=== PATIENT | female | born 2000 | race Two or more races ===

== ENCOUNTER 2024-09-11 15:18 | Inpatient (IN) | payer MEDICAID, OTHER ==
[~2024-09-11] VITALS: Ht 162.6 cm; Wt 111.7 kg
--- NOTE | 2024-09-11 16:03 | ED.PDOC ---
GI ASSESSMENT HPI Comments A 24-YEAR-OLD FEMALE PRESENTS WITH A CHIEF COMPLAINT OF ABDOMINAL PAIN X 3 WEEKS WITH ASSOCIATED NAUSEA AND VOMITING. PATIENT MENTIONS THAT HER ABDOMEN PAIN IS LOCALIZED TO HER RUQ, RADIATING TO HER BACK, DESCRIBES SHARP, AND RATES HER PAIN A 8/10. PATIENT REPORTS THAT SHE WAS SEEN AT A HOSPITAL IN [place] AND WAS DIAGNOSED WITH GALLSTONES, BUT REPORTS THAT THE MEDICATIONS THEY GAVE HER WERE NOT HELPING WITH HER PAIN. PT DENIES FEVER, SOB, CHEST PAIN, HEADACHE, DIZZINESS AND OTHER COMPLAINTS. NO OTHER SYMPTOMS REPORTED AT THIS TIME OF CARE. Time Seen by MD: 15:44 Reviewed Notes: Nurses Notes, Medications, Allergies Allergies: Coded Allergies: NO KNOWN ALLERGIES (Unverified , 09/11/24) Information Source: Patient Mode of Arrival: Ambulatory Timing: Weeks Duration: Since onset, Days Prehospital treatment: None Quality: Cramping, Sharp, Colicky Vomitus: Food Particles Stool: Normal Severity: Moderate Recent: None Recent Hx of: Other (GALLSTONES ) Pain Location: Epigastric, RUQ Modifying Factors: Food Associated sign and symptoms: Nausea, Vomiting, Abdominal Pain Past Medical History PAST MEDICAL HISTORY: Gallstones Surgical History: Denies all surgeries ZINC PLATE GRAINER History: Denies all ZINC PLATE GRAINER Hx Family History Family History: Reviewed,noncontributory to illness Social History Smoker: Non-Smoker Alcohol: Denies ETOH Use Drugs: Denies Drug Use Lives In: Home Constitutional: denies: chills, diaphoresis, fatigue, fever, malaise, sweats, weakness, others EENTM: denies: blurred vision, double vision, ear bleeding, ear discharge, ear drainage, ear pain, ear ringing, eye pain, eye redness, hearing loss, mouth p ain, mouth swelling, nasal discharge, nose bleeding, nose congestion, nose pain, photophobia, tearing, throat pain, throat swelling, voice changes, others Respiratory: denies: cough, hemoptysis, orthopnea, SOB at rest, shortness of br eath, SOB with excertion, stridor, wheezing, others Cardiovascular: denies: chest pain, dizzy spells, diaphoresis, Dyspnea on exertion, edema, irregular heart beat, left arm pain, lightheadedness, palpitations, PND, syncope, others Gastrointestinal: reports: abdominal pain, nausea, vomiting; denies: abdomen distended, blood streaked bowels, constipated, diarrhea, dysphagia, difficulty swallowing, hematemesis, melena, poor appetite, poor fluid intake, rectal bleeding, rectal pain, others Genitourinary: denies: abnormal vagina bleeding, burning, dyspareunia, dysuria, flank pain, frequency, hematuria, incontinence, pain, , vagina discharge, urgency, others Neurological: denies: dizziness, fainting, headache, left sided numbness, left sided weakness, numbness, paresthesia, pre-existing deficit, right sided numbness, right sided weakness, seizure, speech problems, tingling, tremors, weakness, others Musculoskeletal: denies: back pain, gout, joint pain, joint swelling, muscle pain, muscle stiffness, neck pain, others Integumetry: denies: bruises, change in color, change in hair/nails, dryness, laceration, lesions, lumps, rash, wounds, others Allergic/Immunocompromised: denies: Difficulty Healing, Frequent Infections, Hives, Itching, others Hematologic/Lymphatic: denies: anemia, blood clots, easy bleeding, easy bruising, swollen glands, others Endocrine: denies: excessive hunger, excessive sweating, excessive thirst, excessive urination, flushing, intolerance to cold, intolerance to heat, unexplained weight gain, unexplained weight loss, others Psychiatric: denies: anxiety, bipolar disorder, depression, hopeless, panic disorder, schizophrenia, sleepless, suicidal, others All Other Systems: Reviewed and Negative Physical Exam General Appearance: No Apparent Distress, Obese HEENT: Normal ENT Inspection, PERRL/EOMI, Pharynx Normal, TMs Normal Neck: Full Range of Motion, Non-Tender, Normal, Normal Inspection Respiratory: Chest Non-Tender, Lungs Clear, No Accessory Muscle Use, No Respiratory Distress, Normal Breath Sounds Cardiovascular: No Edema, No JVD, No Murmur, No Gallop, Normal Peripheral Pulse s, Regular Rate/Rhythm Breast Exam: Deferred Gastrointestinal: Epigastric, No Organomegaly, No Pulsatile Mass, Normal Bowel Sounds, RLQ, Soft, Tenderness (RIGHT UPPER ABD TO EPIGASTRIC WITH MILD GUARDING, NO REBOUND TENDERNESS. ) Genitalia: Deferred Pelvic: Deferred Rectal: Deferred Extremities: No calf tenderness, Normal capillary refill, Normal inspection, Normal range of motion, Non-tender, No pedal edema Musculoskeletal : Apperance: Normal Neurologic: Alert, public policy manager II-XII nml as Tested, No Motor Deficits, Normal Affect, Normal Mood, No Sensory Deficits Cerebellar Function: Normal Reflexes: Normal Skin: Dry, Normal Color, Warm Peripheral Pulses: 2+ carotid (R), 2+ carotid (L) Lymphatic: No Adenopathy Was a procedure done? Was a procedure done?: No GI differential Dx Differential Diagnosis: Cholangitis, Cholecystitis, Gastritis/PUD, Gastroenteritis, Hepatitis, Inflammatory BD X-Ray, Labs, Meds, VS Vital Signs Date Time Temp Pulse Resp B/P (MAP) Pulse Ox O2 Delivery O2 Flow Rate FiO2 09/11/24 22:49 98 Room Air* 0 21 09/11/24 21:11 98.9 96 18 112/80 (91) 98 98.9 09/11/24 15:50 97.8 90 18 113/70 (84) 98 97.8 Lab Test 09/11/24 16:05 09/11/24 13:30 Range/Units White Blood Count 20.0 H 4.4-10.8 10^3/uL Red Blood Count 4.60 4.0-5.20 10^6/uL Hemoglobin 13.7 12.2-16.2 g/dL Hematocrit 39.6 36.0-46.0 % Mean Corpuscular Volume 86.0 80.0-100.0 fL Mean Corpuscular Hemoglobin 29.8 28.0-32.0 pg Mean Corpuscular Hemoglobin Concent 34.6 32.0-36.0 g/dL Red Cell Distribution Width 13.5 11.8-14.3 % Platelet Count 455 H 140-450 10^3/uL Mean Platelet Volume 8.2 6.9-10.8 fL Neutrophils (%) (Auto) 85.2 H 37.0-80.0 % Lymphocytes (%) (Auto) 8.7 L 10.0-50.0 % Monocytes (%) (Auto) 5.7 0.0-12.0 % Eosinophils (%) (Auto) 0.2 0.0-7.0 % Basophils (%) (Auto) 0.2 0.0-2.0 % Neutrophils # (Auto) 17.0 H 1.6-8.6 10 ^3/uL Lymphocytes # (Auto) 1.7 0.4-5.4 10 ^3/uL Monocytes # (Auto) 1.1 0-1.3 10 ^3/uL Eosinophils # (Auto) 0 0-0.8 10 ^3/uL Basophils # (Auto) 0 0-0.2 10 ^3/uL Nucleated Red Blood Cells 0.0 % Sodium Level 138 136-145 mmol/L Potassium Level 4.0 3.5-5.1 mmol/L Chloride Level 105 98-107 mmol/L Carbon Dioxide Level 23 20-31 mmol/L Anion Gap 10 5-15 Blood Urea Nitrogen 11 9-23 mg/dL Creatinine 0.81 0.550-1.02 mg/dL Glomerular Filtration Rate Calc 105 >90 mL/min BUN/Creatinine Ratio 13.6 10.0-20.0 Serum Glucose 116 H 74-106 mg/dL Calcium Level 9.9 8.7-10.4 mg/dL Total Bilirubin 1.1 H 0.2-1.0 mg/dL Aspartate Amino Transferase (AST) 92 H 13-40 U/L Alanine Aminotransferase (ALT) 59 H 7-40 U/L Alkaline Phosphatase 80 46-116 U/L Total Protein 7.7 5.7-8.2 g/dL Albumin 4.5 3.2-4.8 g/dL Lipase 27 12-53 U/L Urine Color Yellow Yellow Urine Clarity Turbid H Clear Urine pH 6.0 5.0-9.0 Urine Specific Wilder 1.033 1.001-1.035 Urine Protein Trace H Negative Urine Ketones 1+ H Negative Urine Blood Negative Negative /uL Urine Nitrite Negative Negative Urine Bilirubin 1+ H Negative Urine Urobilinogen 4 H Negative mg/dL Urine Leukocyte Esterase Negative Negative /uL Urine RBC 2 0 - 4 /hpf Urine Microscopic WBC 1 0-5 /HPF Urine Squamous Epithelial Cells Mod <5 /hpf Urine Bacteria None seen None Seen /hpf Urine Mucus Few None Seen Urine Glucose Normal Normal mg/dL Urine Test Negative Negative Current Medications Medications (Trade) Dose Ordered Sig/Nazia Route Start Time Stop Time Status Last Admin Sodium Chloride 1,000 ml @ 1,000 mls/hr Q1H ONCE IV 09/11/24 16:45 09/11/24 17:44 DC 09/11/24 17:57 Ondansetron HCl (Zofran) 4 mg ONCE ONCE IV 09/11/24 16:45 09/11/24 16:46 DC 09/11/24 17:54 Ketorolac Tromethamine (Toradol Injection) 30 mg ONCE ONCE IV 09/11/24 16:45 09/11/24 16:46 DC 09/11/24 17:55 Ceftriaxone Sodium 50 ml @ 100 mls/hr ONCE ONCE IV 09/11/24 17:30 09/11/24 17:59 DC 09/11/24 17:54 Pantoprazole Sodium (Protonix) 40 mg ONCE ONCE IV 09/11/24 22:00 09/11/24 22:09 DC 09/11/24 22:46 Metronidazole 100 ml @ 100 mls/hr Q8HR IV 09/11/24 22:00 09/12/24 05:29 Sodium Chloride 1,000 ml @ 60 mls/hr [id number] IV 09/11/24 22:00 09/12/24 05:38 X-Ray, Labs, Meds, VS Comment EXTERNAL MEDICAL RECORDS: NONE INDEPENDENT HISTORIANS: NONE SOCIAL DETERMINANTS OF HEALTH: NONE LABS ORDERED: CBC, CMP REVIEWED AND INTERPRETED RESULTS: AST/ALT IS MILD ELEVATED. WBC IS ELEVATED. IMAGING ORDERED: GALLBLADDER US TREATMENTS ORDERED: 0.9 NS 1L IV, TORADOL IM, ROCEPHIN IM, ZOFRAN IVP PATIENT'S CASE AND RESULTS HAVE BEEN DISCUSSED WITH DR. ZALDIVAR AND THEY AGREE WITH MY PLAN OF CARE. UPON MY PHYSICAL EXAMINATION, THE PATIENT HAD GUARDING NOTED UPON PALPATION TO HER RUQ OF HER ABDOMEN, BUT NO REBOUND TENDERNESS. DUE TO THE PATIENT'S ABDOMINAL ULTRASOUND REVEALING CHOLELITHIASIS WITH A MILD COMMON BILE DUCT DILATION/POSSIBLE CHOLEDOCHOLITHIASIS AND HER LABS SHOWING MILDLY ELEVATED LIVER ENZYMES, I HAVE DETERMINED THE PATIENT NEEDS TO BE ADMITTED FOR AN MRCP TO RULE OUT CHOLEDOCHOLITHIASIS. THE ON-CALL HOSPITALIST WILL BE CONTACTED FOR ADMISSION OF THIS PATIENT. 1730 I HAVE CALLED THE ON-CALL HOSPITALIST HARDY TOMAS NP, AND HE HAS SAID HE WILL REPEAT THE PATIENT'S LIVER PANEL AND ADMIT THE PATIENT FOR FURTHER EVALUATION. Time of 1ST Reevaluation: 17:00 Reevaluation 1ST: Unchanged Patient Education/Counseling: Diagnosis, Treatment Family Education/Counseling: Diagnosis, Treatment SEPSIS Sepsis Screen Physician Orders Gallbladder (09/11/24 15:48) Heplock Iv (09/11/24 ) * [employer] Program Director (09/11/24 21:58) Ceftriaxone 1gm/50ml D5w (Rocephin) (09/12/24 18:00) Pantoprazole (Protonix) (09/12/24 10:00) Blood Culture (09/11/24 21:58) Metronidazole 500mg/100ml (Flagyl 500mg/ (09/11/24 22:00) Allergies (09/11/24 21:58) Code Status (09/11/24 21:58) Sodium Chloride 0.9% (09/11/24 22:00) Oxygen Per Hour (09/11/24 21:58) Hydrocodone-Acet 5/325mg Tab ([place] 5/32 (09/11/24 22:00) Ondansetron Hcl (Zofran) (09/11/24 22:00) Docusate Sodium Capsule (Colace Capsule) (09/11/24 22:00) Condition: Serious (09/11/24 21:58) Acetaminophen Tablet (Tylenol Tablet) (09/11/24 22:00) Clear Liq Diet (09/12/24 Breakfast) Bedrest With Bathroom Privileg (09/11/24 21:58) Morphine Sulfate Injection (09/11/24 22:00) Sequential Compression Device (09/11/24 ) Vital Signs Date Time Temp Pulse Resp B/P (MAP) Pulse Ox O2 Delivery O2 Flow Rate FiO2 09/11/24 22:49 98 Room Air* 0 21 09/11/24 21:11 98.9 96 18 112/80 (91) 98 98.9 09/11/24 15:50 97.8 90 18 113/70 (84) 98 97.8 Laboratory Tests Test 09/11/24 16:05 White Blood Count 20.0 10^3/uL (4.4-10.8) H Medications Medications Dose Ordered Sig/Nazia Route Start Time Stop Time Status Last Admin Dose Admin Metronidazole 100 ml @ 100 mls/hr Q8HR IV 09/11/24 22:00 09/12/24 05:29 Pantoprazole Sodium 40 mg ONCE ONCE IV 09/11/24 22:00 09/11/24 22:09 DC 09/11/24 22:46 Sodium Chloride 1,000 ml @ 60 mls/hr [id number] IV 09/11/24 22:00 09/12/24 05:38 Departure 1 Departure Time of Disposition: 17:00 Impression: Primary Impression: Cholelithiasis and cholecystitis without obstruction Qualified Codes: K80.62 - Calculus of gallbladder and bile duct with acute cholecystitis without obstruction Additional Impression: Common bile duct dilation Disposition: ADMITTED INPATIENT Admit to: Tele Condition: Serious Critical Care Note Critical Care Time?: No Stability Stability form required: Yes Unstable for transfer: Requires medication, ED Physician Assesment, Possible rapid decline Heart Score Heart Score: Heart Score Response (Comments) Value History N/A 0 EKG N/A 0 Age N/A 0 Risk Factors N/A 0 Troponin N/A 0 Total 0 I personally scribed for ARAVIND GRAJEDA ([email or web address]) on 09/11/24 at 16:03. Electronically submitted by Christiano Paredes ([email or web address]). I personally scribed for ARAVIND GRAJEDA ([email or web address]) on 09/11/24 at 17:42. Electronically submitted by Christiano Paredes ([email or web address]). I personally scribed for ARAVIND GRAJEDA ([email or web address]) on 09/11/24 at 17:44. Electronically submitted by Christiano Paredes ([email or web address]). ARAVIND GRAJEDA Sep 11, 2024 16:03
[2024-09-11 16:25] LABS: Hematocrit 39.6 % (36.0-46.0); Hemoglobin 13.7 g/dL (12.2-16.2); Mean Corpuscular Hemoglobin 29.8 pg (28.0-32.0); Mean Corpuscular Volume 86.0 fL (80.0-100.0); Nucleated Red Blood Cells % 0.0 %
[2024-09-11 16:42] LABS: Albumin 4.5 g/dL (3.2-4.8); Alkaline Phosphatase 80 U/L (46-116); Anion Gap 10 (5-15); BUN/Creatinine Ratio 13.6 (10.0-20.0); Bilirubin, Total 1.1 mg/dL (0.2-1.0); Blood Urea Nitrogen 11 mg/dL (9-23); Calcium 9.9 mg/dL (8.7-10.4); Carbon Dioxide 23 mmol/L (20-31); Chloride 105 mmol/L (98-107); Lipase 27 U/L (12-53); Potassium 4.0 mmol/L (3.5-5.1); Sodium 138 mmol/L (136-145); Total Protein 7.7 g/dL (5.7-8.2)
[2024-09-11 16:43] LABS: Alanine Aminotransferase 59 U/L (7-40); Glucose 116 mg/dL (74-106)
[2024-09-11 17:08] LABS: Urine Protein, UAD TRACE (Negative)
--- NOTE | 2024-09-11 17:16 | DVH ---
Technique: Real-time ultrasound imaging of the abdomen was performed with grayscale and color Doppler . Indication: EPIGASTRIC PAIN, HX OF GALLSTONE Comparison: None Findings: Liver measures 15.7 cm. It is increased in echogenicity and echotexture without focal mass. Portal v ein is normal in caliber and demonstrates normal hepatopetal flow. Gallbladder demonstrates cholelithiasis. There is no pericholecystic fluid. The wall thickness is nor mal. The common bile duct measures 8 mm. No intrahepatic biliary ductal dilatation. The right kidney measures 9.7 cm. There is no hydronephrosis or sonographic evidence of nephrolithias is. The visualized portion of the pancreas is unremarkable. The visualized portion of the IVC is unremarkable. Impression: Cholelithiasis Dilated common bile duct measuring 8 mm with possible choledocholithiasis. Recommend MRCP and GI con sultation to further evaluate. Echogenic liver which can be seen with hepatic steatosis, cirrhosis.
[2024-09-11] MEDS: cefTRIAXone 1GM/50ML D5W 50 ML IV ONE (17:54)
[2024-09-11] MEDS: ONDANSETRON HCL 4 MG/2 ML VIAL IV ONE (17:54)
[2024-09-11] MEDS: KETOROLAC TROMETH 30 MG/ML 1ML VIAL IV ONE (17:55)
[2024-09-11] MEDS: SODIUM CHLORIDE 0.9% 1,000 ML IV ONE (17:57)
[2024-09-11] MEDS ORDERED: DOCUSATE SOD 100 MG CAP PO PRN (22:00)
[2024-09-11] MEDS: SODIUM CHLORIDE 0.9% 1,000 ML IV SCH (22:00)
[2024-09-11] MEDS: PANTOPRAZOLE 40 MG/10 ML VIAL INJ IV ONE (22:46)
[2024-09-11 22:49] VITALS: O2SAT 98
--- NOTE | 2024-09-11 23:48 | DVHHP2 ---
History of Present Illness Reason for Visit: Acute abdominal pain History of Present Illness The patient is a 24-year-old female with past medical history of gallstones who presented to [facility] ED with complaint of abdominal pain for the past 3 weeks. Patient reports she has been experiencing abdominal pain rating 8/10 numeric scale, described as sharp, associated with nausea, vomiting, getting worse that prompted this visit. Patient was seen and evaluated in the ED, laboratory data shows WBC 20.0, platelets 455, sodium 138, potassium 4.0, BUN 11, creatinine 0.81, glucose 106, calcium 9.9, lipase 27, AST 92, ALT 59, blood pressure 112/80, heart rate 96, temperature 98.6 F, O2 saturation 98% on room air. Gallbladder ultrasound revealing cholelithiasis, dilated common bile duct measuring 8 mm with possible choledocholithiasis. Patient was given Toradol 30 mg IV x1, please see medication orders section in the computer. On my assessment, patient denied chest pain, no headache, no dizziness, no diaphoresis, no shortness of breaths, no nausea, no vomiting at this moment, no fever, no chills. Patient was admitted for further evaluation and medical management. Past Medical History Gallstones Past Surgical History Denies all surgeries Family History Reviewed, noncontributory to the management of this case. Past Social History The patient lives at home, denies smoking, alcohol or illicit drugs abuse. Review of Systems Constitutional: No: Fever, Chills, Sweats, Weakness, Malaise, Other Eyes: No: Pain, Vision change, Conjunctivae inflammation, Eyelid inflammation, Other, Redness ENT: No: Ear pain, Ear discharge, Nose pain, Nose discharge, Nose congestion, Mouth pain, Mouth swelling, Throat pain, Throat swelling, Other Respiratory: No: Cough, Dry, Shortness of breath, SOB with excertion, Wheezing, Hemoptysis, Pleuritic Pain, Sputum, Wheezing, Other Cardiovascular: No: Chest Pain, Palpitations, Orthopnea, Paroxysmal Noc. Dyspnea, Edema, Lt Headedness, Other Gastrointestinal: Nausea, Vomiting, Abdominal Pain; No: Diarrhea, Constipation, Melena, Hematochezia, Other Genitourinary: No Dysuria, No Frequency, No Incontinence, No Hematuria, No Retention, No Other Musculoskeletal: No: other, neck pain, shoulder pain, arm pain, back pain, hand pain, leg pain, foot pain Skin: No: Rash, Lesions, Jaundice, Bruising, Other Neurological: No: Weakness, Numbness, Incoordination, Change in speech, Confusion, Seizures, Other Allergies: Coded Allergies: NO KNOWN ALLERGIES (Unverified , 09/11/24) Medications Current Medications Medications Dose Ordered Sig/Nazia Route Start Time Stop Time Status Last Admin Dose Admin Ceftriaxone Sodium 50 ml @ 100 mls/hr Q24H IV 09/12/24 18:00 Pantoprazole Sodium 40 mg DAILY IV 09/12/24 10:00 Metronidazole 100 ml @ 100 mls/hr Q8HR IV 09/11/24 22:00 09/11/24 22:45 100 MLS/HR Sodium Chloride 1,000 ml @ 60 mls/hr [id number] IV 09/11/24 22:00 Acetaminophen/ Hydrocodone Bitart 1 tab Q4HP PRN PO 09/11/24 22:00 Ondansetron HCl 4 mg Q4HP PRN IV 09/11/24 22:00 Docusate Sodium 100 mg BIDPRN PRN PO 09/11/24 22:00 Acetaminophen 650 mg Q6HP PRN PO 09/11/24 22:00 Morphine Sulfate 2 mg Q4HPRN PRN IV 09/11/24 22:00 Exam Vital Signs Vital Signs Date Time Temp Pulse Resp B/P (MAP) Pulse Ox O2 Delivery O2 Flow Rate FiO2 09/11/24 22:49 98 Room Air* 0 21 09/11/24 21:11 98.9 96 18 112/80 (91) 98.9 General Appearance: Alert, Oriented X3, Cooperative, No acute distress HEENT: Atraumatic, PERRLA, EOMI, Mucous membr. moist/pink Respiratory: Normal air movement Cardiovascular: Regular rate, Normal S1, Normal S2, No murmurs Abdominal: Normal bowel sounds, Soft, No tenderness, No hepatospenomegaly, No masses Extremities: No clubbing, No cyanosis, No edema, Normal pulses, No tenderness/swelling Skin: No rashes, No breakdown, No significant lesion Neuro: Normal gait, Normal speech, Strength at 5/5 X4 ext, Normal tone, Sensation intact, Cranial nerves 3-12 NL, Reflexes 2+ Psych/Mental Status: Mental status NL, Mood NL Labs/Xrays Labs Test 09/11/24 16:05 09/11/24 13:30 Range/Units White Blood Count 20.0 H 4.4-10.8 10^3/uL Red Blood Count 4.60 4.0-5.20 10^6/uL Hemoglobin 13.7 12.2-16.2 g/dL Hematocrit 39.6 36.0-46.0 % Mean Corpuscular Volume 86.0 80.0-100.0 fL Mean Corpuscular Hemoglobin 29.8 28.0-32.0 pg Mean Corpuscular Hemoglobin Concent 34.6 32.0-36.0 g/dL Red Cell Distribution Width 13.5 11.8-14.3 % Platelet Count 455 H 140-450 10^3/uL Mean Platelet Volume 8.2 6.9-10.8 fL Neutrophils (%) (Auto) 85.2 H 37.0-80.0 % Lymphocytes (%) (Auto) 8.7 L 10.0-50.0 % Monocytes (%) (Auto) 5.7 0.0-12.0 % Eosinophils (%) (Auto) 0.2 0.0-7.0 % Basophils (%) (Auto) 0.2 0.0-2.0 % Neutrophils # (Auto) 17.0 H 1.6-8.6 10 ^3/uL Lymphocytes # (Auto) 1.7 0.4-5.4 10 ^3/uL Monocytes # (Auto) 1.1 0-1.3 10 ^3/uL Eosinophils # (Auto) 0 0-0.8 10 ^3/uL Basophils # (Auto) 0 0-0.2 10 ^3/uL Nucleated Red Blood Cells 0.0 % Sodium Level 138 136-145 mmol/L Potassium Level 4.0 3.5-5.1 mmol/L Chloride Level 105 98-107 mmol/L Carbon Dioxide Level 23 20-31 mmol/L Anion Gap 10 5-15 Blood Urea Nitrogen 11 9-23 mg/dL Creatinine 0.81 0.550-1.02 mg/dL Glomerular Filtration Rate Calc 105 >90 mL/min BUN/Creatinine Ratio 13.6 10.0-20.0 Serum Glucose 116 H 74-106 mg/dL Calcium Level 9.9 8.7-10.4 mg/dL Total Bilirubin 1.1 H 0.2-1.0 mg/dL Aspartate Amino Transferase (AST) 92 H 13-40 U/L Alanine Aminotransferase (ALT) 59 H 7-40 U/L Alkaline Phosphatase 80 46-116 U/L Total Protein 7.7 5.7-8.2 g/dL Albumin 4.5 3.2-4.8 g/dL Lipase 27 12-53 U/L Urine Color Yellow Yellow Urine Clarity Turbid H Clear Urine pH 6.0 5.0-9.0 Urine Specific [place] 1.033 1.001-1.035 Urine Protein Trace H Negative Urine Ketones 1+ H Negative Urine Blood Negative Negative /uL Urine Nitrite Negative Negative Urine Bilirubin 1+ H Negative Urine Urobilinogen 4 H Negative mg/dL Urine Leukocyte Esterase Negative Negative /uL Urine RBC 2 0 - 4 /hpf Urine Microscopic WBC 1 0-5 /HPF Urine Squamous Epithelial Cells Mod <5 /hpf Urine Bacteria None seen None Seen /hpf Urine Mucus Few None Seen Urine Glucose Normal Normal mg/dL Urine Test Negative Negative PATIENT: NEYMAR HAMILTONNACCT: [id number] UNIT: [id number] : 2000 LOC: ER ROOM / BED: / AGE / SEX: 24 / F ADM STATUS: REG ER SERVICE 1548 ORDERING PHYSICIAN: ARAVIND GRAJEDA PROCEDURE(s): GBUS - GALLBLADDER REASON: EPIGASTRIC PAIN, HX OF GALLSTONE ORDER NUMBER(s): [id number], ACCESSION NUMBER(s): [id number] Technique: Real-time ultrasound imaging of the abdomen was performed with grayscale and color Doppler. Indication: EPIGASTRIC PAIN, HX OF GALLSTONE Comparison: None Findings: Liver measures 15.7 cm. It is increased in echogenicity and echotexture without focal mass. Portal vein is normal in caliber and demonstrates normal hepatopetal flow. Gallbladder demonstrates cholelithiasis. There is no pericholecystic fluid. The wall thickness is normal. The common bile duct measures 8 mm. No intrahepatic biliary ductal dilatation. The right kidney measures 9.7 cm. There is no hydronephrosis or sonographic evidence of nephrolithiasis. The visualized portion of the pancreas is unremarkable. The visualized portion of the IVC is unremarkable. Impression: Cholelithiasis Dilated common bile duct measuring 8 mm with possible choledocholithiasis. Recommend MRCP and GI consultation to further evaluate. Echogenic liver which can be seen with hepatic steatosis, cirrhosis. SEPSIS Sepsis Screen Date sepsis recognized/suspect: Sep 11, 2024 Time Sepsis recognized/suspect: 2248 Recent Procedure: No On Antibiotic Therapy: No Respiratory Rate >20: No Heart Rate >90: No Temp<36 C (96.8 F) or >38.3 C: No SBP <90 or MAP <65 mmHG: No New Acute Mental Status Change: No Is the patient on CPAP, BIPAP,: No Physician Orders Gallbladder (09/11/24 15:48) Heplock Iv (09/11/24 ) * Gi Dvh Management Supervisor (09/11/24 21:58) Ceftriaxone 1gm/50ml D5w (Rocephin) (09/12/24 18:00) Pantoprazole (Protonix) (09/12/24 10:00) Blood Culture (09/11/24 21:58) Metronidazole 500mg/100ml (Flagyl 500mg/ (09/11/24 22:00) Allergies (09/11/24 21:58) Code Status (09/11/24 21:58) Sodium Chloride 0.9% (09/11/24 22:00) Oxygen Per Hour (09/11/24 21:58) Hydrocodone-Acet 5/325mg Tab ([place] 5/32 (09/11/24 22:00) Ondansetron Hcl (Zofran) (09/11/24 22:00) Docusate Sodium Capsule (Colace Capsule) (09/11/24 22:00) Complete Blood Count (09/12/24 04:00) Comprehensive Metabolic Panel (09/12/24 04:00) Condition: Serious (09/11/24 21:58) Acetaminophen Tablet (Tylenol Tablet) (09/11/24 22:00) Clear Liq Diet (09/12/24 Breakfast) Bedrest With Bathroom Privileg (09/11/24 21:58) Morphine Sulfate Injection (09/11/24 22:00) Sequential Compression Device (09/11/24 ) Admit (09/11/24 23:46) Nitroglycerin Sublingual (Ntrostat Subli (09/12/24 00:00) Morphine Sulfate Injection (09/12/24 00:00) Stat Ekg For Chest Pain (09/11/24 23:46) Notify Md Of Changes From Base (09/11/24 23:46) Construction Engineer For 24 Hours (09/11/24 23:46) Emergency Dysrhythmia Protocol (09/11/24 23:46) Rhythm Strips Once Every Shift (09/11/24 23:46) Oxygen By Nasal Cannula (09/11/24 23:46) Vital Signs Date Time Temp Pulse Resp B/P (MAP) Pulse Ox O2 Delivery O2 Flow Rate FiO2 09/11/24 22:49 98 Room Air* 0 21 09/11/24 21:11 98.9 96 18 112/80 (91) 98 98.9 09/11/24 15:50 97.8 90 18 113/70 (84) 98 97.8 Laboratory Tests Test 09/11/24 16:05 White Blood Count 20.0 10^3/uL (4.4-10.8) H Medications Medications Dose Ordered Sig/Nazia Route Start Time Stop Time Status Last Admin Dose Admin Ceftriaxone Sodium 50 ml @ 100 mls/hr ONCE ONCE IV 09/11/24 17:30 09/11/24 17:59 DC 09/11/24 17:54 100 MLS/HR Ketorolac Tromethamine 30 mg ONCE ONCE IV 09/11/24 16:45 09/11/24 16:46 DC 09/11/24 17:55 30 MG Metronidazole 100 ml @ 100 mls/hr Q8HR IV 09/11/24 22:00 09/11/24 22:45 100 MLS/HR Ondansetron HCl 4 mg ONCE ONCE IV 09/11/24 16:45 09/11/24 16:46 DC 09/11/24 17:54 4 MG Pantoprazole Sodium 40 mg ONCE ONCE IV 09/11/24 22:00 09/11/24 22:09 DC 09/11/24 22:46 40 MG Sodium Chloride 1,000 ml @ 1,000 mls/hr Q1H ONCE IV 09/11/24 16:45 09/11/24 17:44 DC 09/11/24 17:57 1,000 MLS/HR Assessment/Plan Assessment/Plan Cholelithiasis and cholecystitis without obstruction Common bile duct dilation Elevated liver enzymes Leukocytosis, unspecified Calculus of gallbladder and bile duct with acute cholecystitis without obstruction Plan 1. Admit to telemetry unit 2. Breathing treatment 3. Pain control management 4. IV antibiotic management 5. Management of fluids and electrolytes 6. Consultation for hospitalist 7. Diagnostic test gallbladder ultrasound 8. DVT prophylaxis on SCDs 9. Repeat labs CBC, CMP in a.m. 10. Home medication reviewed and reconciled 11. Continue with current medical management 12. Treatment plan discussed with patient and RN. Patient verbalized understanding. Plan discussed with: Patient, Other (RN) My Orders Orders - AKASH SAMANO DNP Procedure Category Date Status Time * Gi Dvh Management Supervisor CONS 09/11/24 Transmitted 21:58 Ceftriaxone 1gm/50ml PHA 09/12/24 In Process D5w (Rocephin) 18:00 Pantoprazole PHA 09/12/24 In Process (Protonix) 10:00 Blood Culture NAVID 09/11/24 In Process 21:58 Metronidazole PHA 09/11/24 In Process 500mg/100ml (Flagyl 22:00 Allergies JESÚS 09/11/24 Transmitted 21:58 Code Status CODE 09/11/24 Transmitted 21:58 Sodium Chloride 0.9% PHA 09/11/24 In Process 22:00 Oxygen Per Hour RT 09/11/24 Transmitted 21:58 Hydrocodone-Acet PHA 09/11/24 In Process 5/325mg Tab ([place] 22:00 Ondansetron Hcl PHA 09/11/24 In Process (Zofran) 22:00 Docusate Sodium PHA 09/11/24 In Process Capsule (Colace 22:00 Complete Blood Count LAB 09/12/24 Verified 04:00 Comprehensive LAB 09/12/24 Verified Metabolic Panel 04:00 Condition: Serious JESÚS 09/11/24 In Process 21:58 Acetaminophen Tablet PHA 09/11/24 In Process (Tylenol Tablet) 22:00 Clear Liq Diet DIET 09/12/24 Transmitted Breakfast Bedrest With Bathroom JESÚS 09/11/24 In Process Privileg 21:58 Morphine Sulfate PHA 09/11/24 In Process Injection 22:00 Sequential JESÚS 09/11/24 In Process Compression Device Admit ADMIT 09/11/24 Transmitted 23:46 Nitroglycerin PHA 09/12/24 Logged Sublingual (Ntrostat 00:00 Morphine Sulfate PHA 09/12/24 Logged Injection 00:00 Stat Ekg For Chest JESÚS 7/10/25 Transmitted Pain 23:46 Notify Of Changes [facility] 09/11/24 Transmitted From Base 23:46 Construction Engineer For [facility] 09/11/24 Transmitted 24 Hours 23:46 Emergency Dysrhythmia [facility] 09/11/24 Transmitted Protocol 23:46 Rhythm Strips Once [facility] 09/11/24 Transmitted Every Shift 23:46 Oxygen By Nasal RT 09/11/24 Transmitted Cannula 23:46 Problem List: (1) Cholelithiasis and cholecystitis without obstruction (2) Common bile duct dilation (3) Leukocytosis, unspecified (4) Elevated liver enzymes (5) Calculus of gallbladder and bile duct with acute cholecystitis without obstruction Date of Service: Sep 11, 2024 Billing Provider: AKASH SAMANO DNP Common Visit Codes: [id number] INP/OBS CARE (HIGH) AKASH SAMANO DNP Sep 11, 2024 23:48
[2024-09-12] VITALS (10 sets, daily range): BP systolic 99–122; BP diastolic 61–80; PULSE 67–81; RESP 16–18; TEMP 98–98.9; O2SAT 96–100
[2024-09-12] MEDS ORDERED: MORPHINE SULFATE INJ 2 MG/ml SYRG IV PRN
[2024-09-12] MEDS ORDERED: NITROGLYCERIN 0.4 MG SL TAB SL PRN
[2024-09-12 04:15] LABS: Hematocrit 39.1 % (36.0-46.0); Hemoglobin 13.3 g/dL (12.2-16.2); Mean Corpuscular Hemoglobin 29.3 pg (28.0-32.0); Mean Corpuscular Volume 86.4 fL (80.0-100.0); Nucleated Red Blood Cells % 0.0 %
[2024-09-12 04:35] LABS: Albumin 4.6 g/dL (3.2-4.8); Alkaline Phosphatase 91 U/L (46-116); Anion Gap 13 (5-15); BUN/Creatinine Ratio 17.1 (10.0-20.0); Blood Urea Nitrogen 14 mg/dL (9-23); Calcium 9.9 mg/dL (8.7-10.4); Carbon Dioxide 24 mmol/L (20-31); Chloride 104 mmol/L (98-107); Glucose 97 mg/dL (74-106); Potassium 3.8 mmol/L (3.5-5.1); Sodium 141 mmol/L (136-145); Total Protein 7.5 g/dL (5.7-8.2)
[2024-09-12 05:02] LABS: Alanine Aminotransferase 138 U/L (7-40); Bilirubin, Total 2.6 mg/dL (0.2-1.0)
[2024-09-12] MEDS: PANTOPRAZOLE 40 MG/10 ML VIAL INJ IV SCH (09:15)
[2024-09-12] MEDS ORDERED: HYOS0.1258 PO (09:20)
--- NOTE | 2024-09-12 13:25 | DVHINCON2 ---
GI Consult Consult Note GI consult note Date of Consultation: 09/12/2024 Chief Complaint: MRCP Referring Physician: Yeimi CHO H&P: 24-year-old female with past medical history of gallstones recently diagnosed in [place] two weeks ago admitted to the hospital for abdominal pain. No nausea or vomiting. Denies fever. Patient admits to having multiple body piercings Past Medical History: Gallstone Past Surgical History: Denies Social History: NO smoking, drinking ETOH and use of illegal drugs. Family History: Noncontributory Review of Systems: Constitutional: no fever, chill, weight loss HEENT: no eye pain, no hearing loss, no oral lesion, no scleral icterus Heart: no chest pain, no chest pressure Lung: no cough, no dyspnea with exertion Abdomen: see HPI Physical exam: General: NAD, AAOX3 Chest: lung espinoza clear to auscultation Heart: RRR, no murmur Abdomen: non-distended, no tenderness to palpation, +BS Labs: Labs Test 09/12/24 03:21 09/11/24 16:05 09/11/24 13:30 Range/Units White Blood Count 9.3 # 4.4-10.8 10^3/uL Red Blood Count 4.52 4.0-5.20 10^6/uL Hemoglobin 13.3 12.2-16.2 g/dL Hematocrit 39.1 36.0-46.0 % Mean Corpuscular Volume 86.4 80.0-100.0 fL Mean Corpuscular Hemoglobin 29.3 28.0-32.0 pg Mean Corpuscular Hemoglobin Concent 33.9 32.0-36.0 g/dL Red Cell Distribution Width 13.2 11.8-14.3 % Platelet Count 442 140-450 10^3/uL Mean Platelet Volume 8.5 6.9-10.8 fL Neutrophils (%) (Auto) 62.8 37.0-80.0 % Lymphocytes (%) (Auto) 27.0 10.0-50.0 % Monocytes (%) (Auto) 9.3 0.0-12.0 % Eosinophils (%) (Auto) 0.3 0.0-7.0 % Basophils (%) (Auto) 0.6 0.0-2.0 % Neutrophils # (Auto) 5.8 1.6-8.6 10 ^3/uL Lymphocytes # (Auto) 2.5 0.4-5.4 10 ^3/uL Monocytes # (Auto) 0.9 0-1.3 10 ^3/uL Eosinophils # (Auto) 0 0-0.8 10 ^3/uL Basophils # (Auto) 0.1 0-0.2 10 ^3/uL Nucleated Red Blood Cells 0.0 % Sodium Level 141 136-145 mmol/L Potassium Level 3.8 3.5-5.1 mmol/L Chloride Level 104 98-107 mmol/L Carbon Dioxide Level 24 20-31 mmol/L Anion Gap 13 5-15 Blood Urea Nitrogen 14 9-23 mg/dL Creatinine 0.82 0.550-1.02 mg/dL Glomerular Filtration Rate Calc 103 >90 mL/min BUN/Creatinine Ratio 17.1 10.0-20.0 Serum Glucose 97 74-106 mg/dL Calcium Level 9.9 8.7-10.4 mg/dL Total Bilirubin 2.6 H 0.2-1.0 mg/dL Aspartate Amino Transferase (AST) 163 H 13-40 U/L Alanine Aminotransferase (ALT) 138 H 7-40 U/L Alkaline Phosphatase 91 46-116 U/L Total Protein 7.5 5.7-8.2 g/dL Albumin 4.6 3.2-4.8 g/dL Lipase 27 12-53 U/L Urine Color Yellow Yellow Urine Clarity Turbid H Clear Urine pH 6.0 5.0-9.0 Urine Specific [place] 1.033 1.001-1.035 Urine Protein Trace H Negative Urine Ketones 1+ H Negative Urine Blood Negative Negative /uL Urine Nitrite Negative Negative Urine Bilirubin 1+ H Negative Urine Urobilinogen 4 H Negative mg/dL Urine Leukocyte Esterase Negative Negative /uL Urine RBC 2 0 - 4 /hpf Urine Microscopic WBC 1 0-5 /HPF Urine Squamous Epithelial Cells Mod <5 /hpf Urine Bacteria None seen None Seen /hpf Urine Mucus Few None Seen Urine Glucose Normal Normal mg/dL Urine Test Negative Negative Imaging: CT abdomen pelvis Impression: Cholelithiasis Dilated common bile duct measuring 8 mm with possible choledocholithiasis. Recommend MRCP and GI consultation to further evaluate. Echogenic liver which can be seen with hepatic steatosis, cirrhosis. Assessment: Cholelithiasis Possible choledocholithiasis Elevated LFTs Hepatic steatosis Plan: Discussed with Dr. Stanton Recommend MRI MRCP Surgical consult pending If unable to complete MRCP possible transfer to higher level of care recommended Monitor labs We will continue to follow patient Discussed plan with patient and RN Thank you for this consult Date of Service: Sep 12, 2024 Billing Provider: SAWYER BURGESS Common Visit Codes: CONSULT ONLY Consultation Codes: [id number] CONSULT <60MIN SAWYER BURGESS Sep 12, 2024 13:25
--- NOTE | 2024-09-12 13:38 | DVHINCON2 ---
Date of service: Sep 12, 2024 Family History: Diabetes mellitus G8 MOTHER Allergies: Coded Allergies: NO KNOWN ALLERGIES (Unverified , 09/11/24) Home Meds Reported Medications Hyoscyamine Sulfate (Hyoscyamine Sulfate) 0.125 Mg Sub, 2 TAB PO Q4HPRN PRN for pain 09/12/24 Current Medications Current Medications Medications (Trade) Dose Ordered Sig/Nazia Route PRN Reason Start Time Stop Time Status Last Admin Ceftriaxone Sodium 50 ml @ 100 mls/hr Q24H IV 09/12/24 18:00 Pantoprazole Sodium (Protonix) 40 mg DAILY IV 09/12/24 10:00 09/12/24 09:15 Metronidazole 100 ml @ 100 mls/hr Q8HR IV 09/11/24 22:00 09/12/24 05:29 Sodium Chloride 1,000 ml @ 60 mls/hr [id number] IV 09/11/24 22:00 09/12/24 05:38 Acetaminophen/ Hydrocodone Bitart ([place] 5/325MG Tab) 1 tab Q4HP PRN PO MODERATE PAIN (4-6 PAIN SCALE) 09/11/24 22:00 Ondansetron HCl (Zofran) 4 mg Q4HP PRN IV NAUSEA / VOMITING 09/11/24 22:00 Docusate Sodium (Colace Capsule) 100 mg BIDPRN PRN PO FOR CONSTIPATION 09/11/24 22:00 Acetaminophen (Tylenol Tablet) 650 mg Q6HP PRN PO PAIN SCALE 1-3 OR TEMP>100.4 09/11/24 22:00 Morphine Sulfate 2 mg Q4HPRN PRN IV SEVERE PAIN (7-10 PAIN SCALE) 09/11/24 22:00 Nitroglycerin (Ntrostat Sublingual) 0.4 mg Q5MINP PRN SL FOR CHEST PAIN 09/12/24 00:00 Morphine Sulfate 2 mg Q30M PRN IV FOR CHEST PAIN 09/12/24 00:00 Vital Signs Vital Signs Date Time Temp Pulse Resp B/P (MAP) Pulse Ox O2 Delivery O2 Flow Rate FiO2 09/12/24 13:19 98.2 80 18 105/68 (80) 96 98.2 09/12/24 07:27 Room Air* 0 21 Labs/Diagnostic Data Labs Test 09/12/24 03:21 09/11/24 16:05 09/11/24 13:30 Range/Units White Blood Count 9.3 # 4.4-10.8 10^3/uL Red Blood Count 4.52 4.0-5.20 10^6/uL Hemoglobin 13.3 12.2-16.2 g/dL Hematocrit 39.1 36.0-46.0 % Mean Corpuscular Volume 86.4 80.0-100.0 fL Mean Corpuscular Hemoglobin 29.3 28.0-32.0 pg Mean Corpuscular Hemoglobin Concent 33.9 32.0-36.0 g/dL Red Cell Distribution Width 13.2 11.8-14.3 % Platelet Count 442 140-450 10^3/uL Mean Platelet Volume 8.5 6.9-10.8 fL Neutrophils (%) (Auto) 62.8 37.0-80.0 % Lymphocytes (%) (Auto) 27.0 10.0-50.0 % Monocytes (%) (Auto) 9.3 0.0-12.0 % Eosinophils (%) (Auto) 0.3 0.0-7.0 % Basophils (%) (Auto) 0.6 0.0-2.0 % Neutrophils # (Auto) 5.8 1.6-8.6 10 ^3/uL Lymphocytes # (Auto) 2.5 0.4-5.4 10 ^3/uL Monocytes # (Auto) 0.9 0-1.3 10 ^3/uL Eosinophils # (Auto) 0 0-0.8 10 ^3/uL Basophils # (Auto) 0.1 0-0.2 10 ^3/uL Nucleated Red Blood Cells 0.0 % Sodium Level 141 136-145 mmol/L Potassium Level 3.8 3.5-5.1 mmol/L Chloride Level 104 98-107 mmol/L Carbon Dioxide Level 24 20-31 mmol/L Anion Gap 13 5-15 Blood Urea Nitrogen 14 9-23 mg/dL Creatinine 0.82 0.550-1.02 mg/dL Glomerular Filtration Rate Calc 103 >90 mL/min BUN/Creatinine Ratio 17.1 10.0-20.0 Serum Glucose 97 74-106 mg/dL Calcium Level 9.9 8.7-10.4 mg/dL Total Bilirubin 2.6 H 0.2-1.0 mg/dL Aspartate Amino Transferase (AST) 163 H 13-40 U/L Alanine Aminotransferase (ALT) 138 H 7-40 U/L Alkaline Phosphatase 91 46-116 U/L Total Protein 7.5 5.7-8.2 g/dL Albumin 4.6 3.2-4.8 g/dL Lipase 27 12-53 U/L Urine Color Yellow Yellow Urine Clarity Turbid H Clear Urine pH 6.0 5.0-9.0 Urine Specific [place] 1.033 1.001-1.035 Urine Protein Trace H Negative Urine Ketones 1+ H Negative Urine Blood Negative Negative /uL Urine Nitrite Negative Negative Urine Bilirubin 1+ H Negative Urine Urobilinogen 4 H Negative mg/dL Urine Leukocyte Esterase Negative Negative /uL Urine RBC 2 0 - 4 /hpf Urine Microscopic WBC 1 0-5 /HPF Urine Squamous Epithelial Cells Mod <5 /hpf Urine Bacteria None seen None Seen /hpf Urine Mucus Few None Seen Urine Glucose Normal Normal mg/dL Urine Test Negative Negative Assessment [id number] AFEBRILE VSS PAIN RUQ WBC TRENDING DOWN LFT ELEVATED BILIARY COLIC RESOLVING R/O CBD STONE MRCP AND IF ERCP INDICATED TRANSFER TO HIGHER LEVEL OF CARE Plan discussed with: Patient GISELA ORTIZ MD Sep 12, 2024 13:38
--- NOTE | 2024-09-12 14:45 | DVH ---
[id number] MRI MRCP MRI Attending Name: MARTHA PHAM COMPARISON: 09/11/2024 INDICATION: Pain; r/o choledocholithiasis TECHNIQUE: MRCP was performed without the use of intravenous contrast using a MRI imaging system. Three-dimensional MRCP was performed using maximum intensity projection reconstruction on an [facility] ent workstation under concurrent supervision. FINDINGS: Visualized lower thorax: Limited imaging of the thorax demonstrates no suspicious pleural or parenchy mal disease. Liver: Hepatic steatosis. Gallbladder: Gallstones with gallbladder wall thickening and pericholecystic edema. Biliary system: There is no intrahepatic or extrahepatic bile duct dilatation. No filling defect to s uggest choledocholithiasis. Spleen: Normal in morphology and signal intensity. Pancreas: Normal in morphology and signal intensity. Adrenal glands: Normal in morphology and signal intensity. Kidneys: The kidneys are symmetric in size and appearance. No hydronephrosis. Urinary tract: The included ureters, as visualized, are normal in course and caliber. GI tract: The included portions of the bowel are within normal limits. Lymph nodes: No enlarged lymph nodes. Peritoneum: No ascites. Musculoskeletal: The bone marrow signal intensity is within normal limits. IMPRESSION: No intra or extra hepatic biliary ductal dilatation. No MRI evidence of choledocholithiasis. Gallstones with pericholecystic edema and gallbladder wall thickening. If clinical concern for acute cholecystitis. Consider further evaluation with nuclear medicine HIDA scan.
[2024-09-12 16:00] LABS: Alkaline Phosphatase 103 U/L (46-116); Anion Gap 12 (5-15); BUN/Creatinine Ratio 14.9 (10.0-20.0); Blood Urea Nitrogen 11 mg/dL (9-23); Calcium 10.1 mg/dL (8.7-10.4); Glucose 96 mg/dL (74-106); Potassium 4.0 mmol/L (3.5-5.1); Sodium 140 mmol/L (136-145); Total Protein 6.7 g/dL (5.7-8.2)
[2024-09-12 16:01] LABS: Alanine Aminotransferase 183 U/L (7-40); Albumin 4.2 g/dL (3.2-4.8); Bilirubin, Total 3.2 mg/dL (0.2-1.0); Carbon Dioxide 20 mmol/L (20-31); Chloride 108 mmol/L (98-107)
[2024-09-12] MEDS: cefTRIAXone 1GM/50ML D5W 50 ML IV SCH (17:34)
--- NOTE | 2024-09-12 19:07 | DVHPN2 ---
Subjective Patient feeling improved, nausea improving, abdominal pain improving. Reviewed: H&P Changes from previous H/P or p: No Changes General: Per HPI Eyes: No Pain, No Vision change, No Conjunctivae inflammation, No Eyelid inflammation, No Other, No Redness ENT: No Ear pain, No Ear discharge, No Nose pain, No Nose discharge, No Nose congestion, No Mouth pain, No Mouth swelling, No Throat pain, No Throat swelling, No Other Cardiovascular: No Chest Pain, No Palpitations, No Orthopnea, No Paroxysmal Noc. Dyspnea, No Edema, No Lt Headedness, No Other Respiratory: No Cough, No Dry, No Shortness of breath, No SOB with excertion, No Wheezing, No Hemoptysis, No Pleuritic Pain, No Sputum, No Other Gastrointestinal: Nausea, Vomiting, Abdominal Pain; No Diarrhea, No Constipation, No Melena, No Hematochezia, No Other Genitourinary: No Dysuria, No Frequency, No Incontinence, No Hematuria, No Retention, No Other Musculoskeletal: No other, No neck pain, No shoulder pain, No arm pain, No back pain, No hand pain, No leg pain, No foot pain Skin: No Rash, No Lesions, No Jaundice, No Bruising, No Other Objective Vitals Vital Signs Date Time Temp Pulse Resp B/P (MAP) Pulse Ox O2 Delivery O2 Flow Rate FiO2 09/12/24 18:53 98.6 70 16 122/80 (94) 100 98.6 09/12/24 08:33 Room Air* 0 21 Intake/Output Intake and Output 09/12/24 07:00 Intake Total 100 ml Balance 100 ml IV Total 100 ml Exam GEN: Healthy appearing, well-developed, NAD. HEENT: NC/AT; MMM. CV: RRR, no m/r/g. LUNGS: CTAB, no w/r/c. ABD: Right upper quadrant tenderness, bowel sounds present normal EXT: skin Warm, well perfused. no rashes. No clubbing, cyanosis, or edema. NEURO: Ambulating with no limitations. No focal deficits. Medications Current Medications Medications Dose Ordered Sig/Nazia Route Start Time Stop Time Status Last Admin Dose Admin Ceftriaxone Sodium 50 ml @ 100 mls/hr Q24H IV 09/12/24 18:00 09/12/24 17:34 100 MLS/HR Pantoprazole Sodium 40 mg DAILY IV 09/12/24 10:00 09/12/24 09:15 40 MG Metronidazole 100 ml @ 100 mls/hr Q8HR IV 09/11/24 22:00 09/12/24 14:42 100 MLS/HR Sodium Chloride 1,000 ml @ 60 mls/hr [id number] IV 09/11/24 22:00 09/12/24 05:38 60 MLS/HR Acetaminophen/ Hydrocodone Bitart 1 tab Q4HP PRN PO 09/11/24 22:00 Ondansetron HCl 4 mg Q4HP PRN IV 09/11/24 22:00 Docusate Sodium 100 mg BIDPRN PRN PO 09/11/24 22:00 Acetaminophen 650 mg Q6HP PRN PO 09/11/24 22:00 Morphine Sulfate 2 mg Q4HPRN PRN IV 09/11/24 22:00 Nitroglycerin 0.4 mg Q5MINP PRN SL 09/12/24 00:00 Morphine Sulfate 2 mg Q30M PRN IV 09/12/24 00:00 Laboratory Results Laboratory Tests 09/12/24 03:21 09/12/24 15:24 Chemistry Test 09/12/24 03:21 09/12/24 15:24 Albumin 4.6 g/dL (3.2-4.8) 4.2 g/dL (3.2-4.8) Calcium Level 9.9 mg/dL (8.7-10.4) 10.1 mg/dL (8.7-10.4) Total Protein 7.5 g/dL (5.7-8.2) 6.7 g/dL (5.7-8.2) LFT Test 09/12/24 03:21 09/12/24 15:24 Alanine Aminotransferase (ALT) 138 U/L (7-40) H 183 U/L (7-40) H Alkaline Phosphatase 91 U/L (46-116) 103 U/L (46-116) Aspartate Amino Transferase (AST) 163 U/L (13-40) H 178 U/L (13-40) H Total Bilirubin 2.6 mg/dL (0.2-1.0) H 3.2 mg/dL (0.2-1.0) H Urinalysis Test 09/11/24 13:30 Urine Color Yellow (Yellow) Urine Clarity Turbid (Clear) H Urine pH 6.0 (5.0-9.0) Urine Specific [place] 1.033 (1.001-1.035) Urine Protein Trace (Negative) H Urine Ketones 1+ (Negative) H Urine Blood Negative /uL (Negative) Urine Nitrite Negative (Negative) Urine Bilirubin 1+ (Negative) H Urine Urobilinogen 4 mg/dL (Negative) H Urine Leukocyte Esterase Negative /uL (Negative) Urine RBC 2 /hpf (0 - 4) Urine Microscopic WBC 1 /HPF (0-5) Urine Squamous Epithelial Cells Mod /hpf (<5) Urine Bacteria None seen /hpf (None Seen) Urine Mucus Few (None Seen) Urine Glucose Normal mg/dL (Normal) Urine Test Negative (Negative) Labs and/or images reviewed: Labs reviewed by me, Image(s) reviewed by me Assessment/Plan Assessment/Plan 09/12 GI and surgery are on board. Both recommending MRCP. MRCP is negative for any choledocholithiasis or any biliary obstruction. GI or surgery either or have informed for transfer through group social worker although no order is visible. Transfer center enquiring. We will trend LFTs and T bili and symptoms. And we will follow up with surgery and GI to re-evaluate need for transfer. It is likely that patient has passed the stone. Patient may also require HIDA scan. Holding transfer right now. Acute choledocholithiasis Acute cholecystitis CBD obstruction, ruled out Transaminitis Hyperbilirubinemia Leukocytosis Neutrophilia Multiple body metal piercings -Clear liquid diet which patient is tolerating -IV antibiotics -P.r.n. antiemetics -Prn analgesia -Continue home medications -Surgery consult -GI consult Diet clear liquid diet GI prophylaxis-tolerating diet DVT prophylaxis-low patella score no need for Lovenox, minimal ambulation present Tele Full code Plan discussed with: Patient My Orders Orders - MARTHA PHAM MD Procedure Category Date Status Time Mrcp Mri MRI 09/12/24 Resulted 10:51 Date of Service: Sep 12, 2024 Billing Provider: MARTHA PHAM MD Common Visit Codes: [id number] INP/OBS CARE(HIGH) MARTHA PHAM MD Sep 12, 2024 19:07
--- NOTE | 2024-09-12 20:13 | DVHINCON2 ---
DATE OF CONSULTATION: 09/12/2024 HISTORY OF PRESENT ILLNESS: The patient is 24 years old, coming in with right upper quadrant pain, now feeling better, almost resolved. Some nausea, vomiting. No constipation or diarrhea. No hematemesis or melena. No bleeding per rectum. PAST MEDICAL HISTORY: No diabetes or hypertension. PAST SURGICAL HISTORY : No significant surgical history. PHYSICAL EXAMINATION: VITAL SIGNS: On examination, afebrile, with stable signs. HEENT: With no evidence of pallor, cyanosis or jaundice. NECK: Supple and nontender with no thyromegaly or lymphadenopathy. CHEST AND LUNGS: Clear. HEART: Within normal limits. ABDOMEN: Soft. She is minimally tender in the right upper quadrant with no rebound. EXTREMITIES: Unremarkable. NEUROLOGIC: Intact. CLINICAL IMPRESSION: Resolving biliary colic. Her liver enzymes are mildly elevated, and there is a possibility of a CBD stone. PLAN: She needs to be considered for an MRCP and ERCP. For that, she will need to have to be transferred to a high level of care. Surgery can be considered based upon ongoing evaluation. MD DWIGHT Kirk/RIC/SUSI/ARLIN TID: [id number] RECEIPT: [id number] cc:
[2024-09-13] VITALS (9 sets, daily range): BP systolic 101–118; BP diastolic 54–76; PULSE 72–93; RESP 16–20; TEMP 97.6–99.1; O2SAT 94–100
[2024-09-13 05:49] LABS: Hematocrit 38.1 % (36.0-46.0); Hemoglobin 12.9 g/dL (12.2-16.2); Mean Corpuscular Hemoglobin 29.3 pg (28.0-32.0); Mean Corpuscular Volume 86.7 fL (80.0-100.0); Nucleated Red Blood Cells % 0.1 %
[2024-09-13 06:13] LABS: Alanine Aminotransferase 162 U/L (7-40); Alkaline Phosphatase 88 U/L (46-116); Anion Gap 11 (5-15); BUN/Creatinine Ratio 8.3 (10.0-20.0); Blood Urea Nitrogen 6 mg/dL (9-23); Calcium 9.6 mg/dL (8.7-10.4); Carbon Dioxide 22 mmol/L (20-31); Chloride 108 mmol/L (98-107); Glucose 89 mg/dL (74-106); Potassium 3.8 mmol/L (3.5-5.1); Sodium 141 mmol/L (136-145); Total Protein 6.4 g/dL (5.7-8.2)
[2024-09-13 06:14] LABS: Albumin 3.8 g/dL (3.2-4.8); Bilirubin, Total 0.8 mg/dL (0.2-1.0)
--- NOTE | 2024-09-13 10:08 | DVHPN2 ---
Progress Note Date Seen: Sep 13, 2024 Medical Necessity Reason Pt with a Central, PICC or Fol: No Objective vital signs Vital Sign Date Time Temp Pulse Resp B/P (MAP) Pulse Ox O2 Delivery O2 Flow Rate FiO2 09/13/24 08:25 99.1 73 20 113/60 (77) 96 99.1 09/13/24 08:21 Room Air* 0 21 Total Intake and Output 09/12/24 09/12/24 09/13/24 15:00 23:00 07:00 Intake Total 300 ml 450 ml Balance 300 ml 450 ml medications Current Medications Medications Dose Ordered Sig/Nazia Route Start Time Stop Time Status Last Admin Dose Admin Ceftriaxone Sodium 50 ml @ 100 mls/hr Q24H IV 09/12/24 18:00 09/12/24 17:34 100 MLS/HR Pantoprazole Sodium 40 mg DAILY IV 09/12/24 10:00 09/12/24 09:15 40 MG Metronidazole 100 ml @ 100 mls/hr Q8HR IV 09/11/24 22:00 09/13/24 05:12 100 MLS/HR Sodium Chloride 1,000 ml @ 60 mls/hr [id number] IV 09/11/24 22:00 09/12/24 21:16 60 MLS/HR Acetaminophen/ Hydrocodone Bitart 1 tab Q4HP PRN PO 09/11/24 22:00 Ondansetron HCl 4 mg Q4HP PRN IV 09/11/24 22:00 Docusate Sodium 100 mg BIDPRN PRN PO 09/11/24 22:00 Acetaminophen 650 mg Q6HP PRN PO 09/11/24 22:00 Morphine Sulfate 2 mg Q4HPRN PRN IV 09/11/24 22:00 Nitroglycerin 0.4 mg Q5MINP PRN SL 09/12/24 00:00 Morphine Sulfate 2 mg Q30M PRN IV 09/12/24 00:00 laboratory and microbiology Laboratory Tests 09/13/24 05:01 Test 09/13/24 05:01 Range/Units Serum Glucose 89 74-106 mg/dL Microbiology Date/Time Source Procedure Growth Status 09/11/24 22:24 Blood Blood Culture - Preliminary NO GROWTH AFTER 24 HOURS OF INCUBATION. Resulted Problem List/Assessment/Plan Problem List/Assessment/Plan AFEBRILE VSS ABD SOFT LESS TENDER WBC WNL LFT TRENDING DOWN MRCP NEG FOR CBD STONE REPEAT LABS AND LIPASE CONSIDER EMERGENT SURGERY BASED ON ONGOING EVAL PT AGREES BENEFITS RISKS DISCUSSED NURSE AT BEDSIDE Plan discussed with: Patient My Orders My Orders Orders - GISELA ORTIZ MD Procedure Category Date Status Time Npo (Nothing By DIET 09/13/24 Transmitted Mouth) Diet Breakfast PTPTT LAB 09/13/24 Logged 09:46 Type And Screen BBK 09/13/24 Logged 09:47 GISELA ORTIZ MD Sep 13, 2024 10:08
[2024-09-13 10:40] LABS: INR 1.03 (0.9-1.15); Partial Thromboplastin Time 27.8 SEC (24.5-34.5); Prothrombin Time 10.9 sec (9.3-11.8)
--- NOTE | 2024-09-13 15:30 | DVHPN2 ---
Subjective Patient feeling improved, nausea improving, abdominal pain improving. Reviewed: H&P Changes from previous H/P or p: No Changes General: Per HPI Eyes: No Pain, No Vision change, No Conjunctivae inflammation, No Eyelid inflammation, No Other, No Redness ENT: No Ear pain, No Ear discharge, No Nose pain, No Nose discharge, No Nose congestion, No Mouth pain, No Mouth swelling, No Throat pain, No Throat swelling, No Other Cardiovascular: No Chest Pain, No Palpitations, No Orthopnea, No Paroxysmal Noc. Dyspnea, No Edema, No Lt Headedness, No Other Respiratory: No Cough, No Dry, No Shortness of breath, No SOB with excertion, No Wheezing, No Hemoptysis, No Pleuritic Pain, No Sputum, No Other Gastrointestinal: Nausea, Vomiting, Abdominal Pain; No Diarrhea, No Constipation, No Melena, No Hematochezia, No Other Genitourinary: No Dysuria, No Frequency, No Incontinence, No Hematuria, No Retention, No Other Musculoskeletal: No other, No neck pain, No shoulder pain, No arm pain, No back pain, No hand pain, No leg pain, No foot pain Skin: No Rash, No Lesions, No Jaundice, No Bruising, No Other Objective Vitals Vital Signs Date Time Temp Pulse Resp B/P (MAP) Pulse Ox O2 Delivery O2 Flow Rate FiO2 09/13/24 12:42 97.6 84 17 113/71 (85) 100 97.6 09/13/24 08:21 Room Air* 0 21 Intake/Output Intake and Output 09/13/24 07:00 Intake Total 750 ml Balance 750 ml Intake Oral 550 ml IV Total 200 ml # Voids 1 Exam GEN: Healthy appearing, well-developed, NAD. HEENT: NC/AT; MMM. CV: RRR, no m/r/g. LUNGS: CTAB, no w/r/c. ABD: Right upper quadrant tenderness, bowel sounds present normal EXT: skin Warm, well perfused. no rashes. No clubbing, cyanosis, or edema. NEURO: Ambulating with no limitations. No focal deficits. Medications Current Medications Medications Dose Ordered Sig/Nazia Route Start Time Stop Time Status Last Admin Dose Admin Ceftriaxone Sodium 50 ml @ 100 mls/hr Q24H IV 09/12/24 18:00 09/12/24 17:34 100 MLS/HR Pantoprazole Sodium 40 mg DAILY IV 09/12/24 10:00 09/13/24 11:17 40 MG Metronidazole 100 ml @ 100 mls/hr Q8HR IV 09/11/24 22:00 09/13/24 14:23 100 MLS/HR Sodium Chloride 1,000 ml @ 60 mls/hr [id number] IV 09/11/24 22:00 09/12/24 21:16 60 MLS/HR Acetaminophen/ Hydrocodone Bitart 1 tab Q4HP PRN PO 09/11/24 22:00 Ondansetron HCl 4 mg Q4HP PRN IV 09/11/24 22:00 Docusate Sodium 100 mg BIDPRN PRN PO 09/11/24 22:00 Acetaminophen 650 mg Q6HP PRN PO 09/11/24 22:00 Morphine Sulfate 2 mg Q4HPRN PRN IV 09/11/24 22:00 Nitroglycerin 0.4 mg Q5MINP PRN SL 09/12/24 00:00 Morphine Sulfate 2 mg Q30M PRN IV 09/12/24 00:00 Laboratory Results Laboratory Tests 09/13/24 05:01 Chemistry Test 09/13/24 05:01 Albumin 3.8 g/dL (3.2-4.8) Calcium Level 9.6 mg/dL (8.7-10.4) Total Protein 6.4 g/dL (5.7-8.2) Coagulation Test 09/13/24 10:14 Prothrombin Time 10.9 sec (9.3-11.8) Prothrombin Time INR 1.03 (0.9-1.15) Activated Partial Thromboplast Time 27.8 SEC (24.5-34.5) Lipid panel Test 09/13/24 05:01 Lipase 27 U/L (12-53) LFT Test 09/13/24 05:01 Alanine Aminotransferase (ALT) 162 U/L (7-40) H Alkaline Phosphatase 88 U/L (46-116) Aspartate Amino Transferase (AST) 110 U/L (13-40) H Total Bilirubin 0.8 mg/dL (0.2-1.0) Urinalysis Test 09/11/24 13:30 09/13/24 12:00 Urine Color Yellow (Yellow) Urine Clarity Turbid (Clear) H Urine pH 6.0 (5.0-9.0) Urine Specific [place] 1.033 (1.001-1.035) Urine Protein Trace (Negative) H Urine Ketones 1+ (Negative) H Urine Blood Negative /uL (Negative) Urine Nitrite Negative (Negative) Urine Bilirubin 1+ (Negative) H Urine Urobilinogen 4 mg/dL (Negative) H Urine Leukocyte Esterase Negative /uL (Negative) Urine RBC 2 /hpf (0 - 4) Urine Microscopic WBC 1 /HPF (0-5) Urine Squamous Epithelial Cells Mod /hpf (<5) Urine Bacteria None seen /hpf (None Seen) Urine Mucus Few (None Seen) Urine Glucose Normal mg/dL (Normal) Urine Test Negative (Negative) Microbiology Microbiology Date/Time Source Procedure Growth Status 09/11/24 22:24 Blood Blood Culture - Preliminary NO GROWTH AFTER 24 HOURS OF INCUBATION. Resulted Labs and/or images reviewed: Labs reviewed by me, Image(s) reviewed by me Assessment/Plan Assessment/Plan 09/12 GI and surgery are on board. Both recommending MRCP. MRCP is negative for any choledocholithiasis or any biliary obstruction. GI or surgery either or have informed for transfer through psychologist social although no order is visible. Transfer center enquiring. We will trend LFTs and T bili and symptoms. And we will follow up with surgery and GI to re-evaluate need for transfer. It is likely that patient has passed the stone. Patient may also require HIDA scan. Holding transfer right now. 09/13 patient is feeling improved. Right upper quadrant pain present although much milder. LFTs are improving, hyperbilirubinemia resolved. Surgery onboard with plan for cholecystectomy for symptomatic cholelithiasis. Taken to OR today. We will follow up with surgery plan. Acute choledocholithiasis Acute cholecystitis CBD obstruction, ruled out Transaminitis Hyperbilirubinemia Leukocytosis Neutrophilia Multiple body metal piercings -Clear liquid diet which patient is tolerating -IV antibiotics -P.r.n. antiemetics -Prn analgesia -Continue home medications -Surgery consult -GI consult NPO, diet defer to surgery postop. GI prophylaxis-tolerating diet DVT prophylaxis-low patella score no need for Lovenox, minimal ambulation present Tele Full code Plan discussed with: Patient Date of Service: Sep 13, 2024 Billing Provider: MARTHA PHAM MD Common Visit Codes: [id number] INP/OBS CARE(HIGH) MARTHA PHAM MD Sep 13, 2024 15:30
[2024-09-13] MEDS ORDERED: fentaNYL CITRATE 100 MCG/2 ML VL ONE ×3 (17:40→18:53)
[2024-09-13] MEDS ORDERED: ROCURONIUM 10MG/ML 10ML VIAL IV ONE ×2 (17:40→18:32)
[2024-09-13] MEDS ORDERED: MIDAZOLAM HCL 2MG/2ML 2ml VIAL (1mg/ml) ONE (17:40)
[2024-09-13] MEDS ORDERED: PROPOFOL 10 MG/ML 20 ML IV ONE (18:32)
[2024-09-13] MEDS ORDERED: ONDANSETRON HCL 4 MG/2 ML VIAL ONE (18:32)
[2024-09-13] MEDS ORDERED: LIDOCAINE 2% (LOCAL ANESTH.) PF 5ml SDV ONE (18:32)
[2024-09-13] MEDS ORDERED: HYDROmorphone HCL 2 MG/ML VL/or syr IV PRN (18:45)
[2024-09-13] MEDS ORDERED: GLYCOPYRROLATE 0.2 MG/ML 1ML VIAL ONE (19:01)
[2024-09-13] MEDS ORDERED: NEOSTIGMINE 1 MG/ML INJ (10mg/10ML VIAL) ONE (19:02)
--- NOTE | 2024-09-13 19:07 | DVHOP2 ---
Operative Report [id number] AC CHOLECYSTITIS LAP CHOLECYSTECTOMY EBL 5 CC NO DRAINS NO COMPLICATIONS GISELA ORTIZ MD Sep 13, 2024 19:07
[2024-09-13] MEDS: HYDROmorphone HCL 2 MG/ML VL/or syr IV PRN (19:13)
[2024-09-13] MEDS: ONDANSETRON HCL 4 MG/2 ML VIAL IV ONE (19:33)
--- NOTE | 2024-09-13 20:03 | DVHOP ---
DATE OF SURGERY: 09/13/2024 PREOPERATIVE DIAGNOSIS: Acute cholecystitis. POSTOPERATIVE DIAGNOSIS: Acute cholecystitis. PROCEDURE: Laparoscopic cholecystectomy. SURGEON: Juan J Stanton MD WIRE SAWYER: None. ANESTHESIA: General. ESTIMATED BLOOD LOSS: Close to 5 mL. DRAINS: No drains were used. COMPLICATIONS: No complications were encountered. DESCRIPTION OF PROCEDURE: The patient was prepped and draped in the usual sterile fashion in the supine position. An infraumbilical incision was applied. It was taken down to the fascia. The Veress needle was introduced and CO2 insufflation was started to pressure of 15 mmHg. The needle was withdrawn, replaced by the 5 mm trocar and the telescope introduced, and the gallbladder was visualized. It was found to be acutely inflamed and distended. A 12 mm port was applied close to the xiphisternum and two 5 mm ports applied more laterally to the subcostal line. With the instruments in place, the gallbladder was grasped with the fundus and the infundibulum. The cystic duct and artery were , dissected out and clipped proximally and distally using the Hem-o-Pa clips and divided in between making sure CBD was kept out of harm's way at all times. The gallbladder was detached from the liver bed using Harmonic dissection, placed in an EndoCatch bag, removed from the xiphisternal wound without any complication. Hemostasis was secured. Irrigation fluid was removed. The port sites were free from bleeding. EndoClose suture was used for the fascial closure of the xiphisternal wound. All the ports were withdrawn after all of the CO2 had been let out and the patient was placed back supine. The wounds were then brought together using 3-0 Monocryl suture in a subcuticular fashion. Surgical glue was applied. The patient tolerated the procedure well and was taken back to the recovery room in stable condition. MD DWIGHT Kirk/LUZ MARINA/SAEID TID: [id number] RECEIPT: [id number] cc: Juwan
[2024-09-13] MEDS: ACETAMINOPHEN 325 MG TAB PO PRN (21:05)
--- NOTE | 2024-09-13 22:27 | DVHPN2 ---
Progress Note - Dictate Date Seen: Sep 13, 2024 (Late entry Patient seen at 10:00 a.m.) Medical Necessity Reason Pt with a Central, PICC or Fol: No Subjective Patient seen at bedside Sitting up in chair in no acute distress Abdominal pain is improving MRCP shows no CBD stone Liver enzymes and bilirubin have trended down vital signs Vital Sign Date Time Temp Pulse Resp B/P (MAP) Pulse Ox O2 Delivery O2 Flow Rate FiO2 09/13/24 21:00 98.6 79 16 118/76 (90) 94 98.6 09/13/24 19:01 Mask 8.0 99 Total Intake and Output 09/12/24 09/12/24 09/13/24 15:00 23:00 07:00 Intake Total 300 ml 450 ml Balance 300 ml 450 ml medications Current Medications Medications Dose Ordered Sig/Nazia Route Start Time Stop Time Status Last Admin Dose Admin Ceftriaxone Sodium 50 ml @ 100 mls/hr Q24H IV 09/12/24 18:00 09/12/24 17:34 100 MLS/HR Pantoprazole Sodium 40 mg DAILY IV 09/12/24 10:00 09/13/24 11:17 40 MG Metronidazole 100 ml @ 100 mls/hr Q8HR IV 09/11/24 22:00 09/13/24 22:01 100 MLS/HR Sodium Chloride 1,000 ml @ 60 mls/hr [id number] IV 09/11/24 22:00 09/12/24 21:16 60 MLS/HR Acetaminophen/ Hydrocodone Bitart 1 tab Q4HP PRN PO 09/11/24 22:00 Ondansetron HCl 4 mg Q4HP PRN IV 09/11/24 22:00 Docusate Sodium 100 mg BIDPRN PRN PO 09/11/24 22:00 Acetaminophen 650 mg Q6HP PRN PO 09/11/24 22:00 09/13/24 21:05 650 MG Morphine Sulfate 2 mg Q4HPRN PRN IV 09/11/24 22:00 Nitroglycerin 0.4 mg Q5MINP PRN SL 09/12/24 00:00 Morphine Sulfate 2 mg Q30M PRN IV 09/12/24 00:00 objective General: NAD, AAOX3 Chest: lung espinoza clear to auscultation Heart: RRR, no murmur Abdomen: non-distended, no tenderness to palpation, +BS laboratory and microbiology Laboratory Tests 09/13/24 05:01 Test 09/13/24 05:01 Range/Units Serum Glucose 89 74-106 mg/dL MRCP IMPRESSION: No intra or extra hepatic biliary ductal dilatation. No MRI evidence of choledocholithiasis. Gallstones with pericholecystic edema and gallbladder wall thickening. If clinical concern for acute cholecystitis. Consider further evaluation with nuclear medicine HIDA scan. Problems(with codes): (1) Calculus of gallbladder and bile duct with acute cholecystitis without obstruction (2) Elevated liver enzymes (3) Leukocytosis, unspecified (4) Common bile duct dilation (5) Cholelithiasis and cholecystitis without obstruction Prognosis Plan Patient is kept NPO She is on IV fluid hydration IV antibiotics Tentative plan for a laparoscopic cholecystectomy today Continue to monitor labs Dietary Evaluation Review Recommendations by RD: Dietary education by RD Comments: 1) Advance to low-fat diet when medically feasible 2) Refer to outpatient RD for weight management 3) Follow-up with gastroenterology 4) Continue to monitor I&O, labs, and skin integrity Expected Outcomes/Goals: 1) labs to improve 2) diet to advance 3) f/u in 3-5 days Plan discussed with: Patient, Other (Dr Neil Stanton) THOMAS STANTON MD Sep 13, 2024 22:27
[2024-09-14] VITALS (8 sets, daily range): BP systolic 107–134; BP diastolic 63–90; PULSE 77–106; RESP 17–18; TEMP 97.2–99.2; O2SAT 95–99
[2024-09-14] MEDS: ONDANSETRON HCL 4 MG/2 ML VIAL IV PRN (00:49)
[2024-09-14] MEDS: HYDROcodone-ACET 5/325MG TAB PO PRN (00:49)
[2024-09-14] MEDS: MELATONIN 5 MG TAB PO ONE (03:02)
[2024-09-14 06:14] LABS: Hematocrit 36.0 % (36.0-46.0); Hemoglobin 12.4 g/dL (12.2-16.2); Mean Corpuscular Hemoglobin 29.7 pg (28.0-32.0); Mean Corpuscular Volume 86.5 fL (80.0-100.0); Nucleated Red Blood Cells % 0.0 %
[2024-09-14] MEDS: MORPHINE SULFATE INJ 2 MG/ml SYRG IV PRN (06:25)
[2024-09-14 06:34] LABS: Albumin 3.9 g/dL (3.2-4.8); BUN/Creatinine Ratio 8.3 (10.0-20.0); Calcium 9.2 mg/dL (8.7-10.4); Chloride 103 mmol/L (98-107); Potassium 3.8 mmol/L (3.5-5.1); Total Protein 6.5 g/dL (5.7-8.2)
[2024-09-14 06:35] LABS: Alanine Aminotransferase 230 U/L (7-40); Alkaline Phosphatase 117 U/L (46-116); Bilirubin, Total 2.8 mg/dL (0.2-1.0); Blood Urea Nitrogen 5 mg/dL (9-23); Glucose 126 mg/dL (74-106); Sodium 136 mmol/L (136-145)
[2024-09-14 06:44] LABS: Anion Gap 13 (5-15); Carbon Dioxide 20 mmol/L (20-31)
[2024-09-14] MEDS: SUCCINYLCHOLINE CHLORIDE 20 MG/ML 10ML VIAL IV ONE (09:01)
[2024-09-14] MEDS: ceFAZolin 2 GM/D5W50ml 50 ML IV ONE (09:01)
--- NOTE | 2024-09-14 12:22 | DVHPN2 ---
Progress Note Date Seen: Sep 14, 2024 Medical Necessity Reason Pt with a Central, PICC or Fol: No Objective vital signs Vital Sign Date Time Temp Pulse Resp B/P (MAP) Pulse Ox O2 Delivery O2 Flow Rate FiO2 09/14/24 11:30 83 18 126/79 09/14/24 08:41 97.5 98 97.5 09/13/24 20:00 Room Air* 0 21 Total Intake and Output 09/13/24 09/13/24 09/14/24 15:00 23:00 07:00 Intake Total 600 ml Balance 600 ml medications Current Medications Medications Dose Ordered Sig/Nazia Route Start Time Stop Time Status Last Admin Dose Admin Ceftriaxone Sodium 50 ml @ 100 mls/hr Q24H IV 09/12/24 18:00 09/12/24 17:34 100 MLS/HR Pantoprazole Sodium 40 mg DAILY IV 09/12/24 10:00 09/14/24 09:46 40 MG Metronidazole 100 ml @ 100 mls/hr Q8HR IV 09/11/24 22:00 09/14/24 06:23 100 MLS/HR Sodium Chloride 1,000 ml @ 60 mls/hr [id number] IV 09/11/24 22:00 09/12/24 21:16 60 MLS/HR Acetaminophen/ Hydrocodone Bitart 1 tab Q4HP PRN PO 09/11/24 22:00 09/14/24 09:01 1 TAB Ondansetron HCl 4 mg Q4HP PRN IV 09/11/24 22:00 09/14/24 08:58 4 MG Docusate Sodium 100 mg BIDPRN PRN PO 09/11/24 22:00 Acetaminophen 650 mg Q6HP PRN PO 09/11/24 22:00 09/13/24 21:05 650 MG Morphine Sulfate 2 mg Q4HPRN PRN IV 09/11/24 22:00 09/14/24 11:30 2 MG Nitroglycerin 0.4 mg Q5MINP PRN SL 09/12/24 00:00 Morphine Sulfate 2 mg Q30M PRN IV 09/12/24 00:00 laboratory and microbiology Laboratory Tests 09/14/24 05:23 09/14/24 05:02 Test 09/14/24 05:23 Range/Units Serum Glucose 126 H 74-106 mg/dL Microbiology Date/Time Source Procedure Growth Status 09/11/24 22:24 Blood Blood Culture - Preliminary NO GROWTH AFTER 48 HOURS OF INCUBATION. Resulted Problem List/Assessment/Plan Problem List/Assessment/Plan AFEBRILE VSS ABD SOFT LESS TENDER POD 1 LFT ELEVATED REPEAT LABS AM CONTINUE CLOSE OBSERVATION NURSE AT BEDSIDE Plan discussed with: Patient My Orders My Orders Orders - GISELA ORTIZ MD Procedure Category Date Status Time Clear Liq Diet DIET 09/14/24 Transmitted Breakfast Dietary Evaluation Review Recommendations by RD: Dietary education by RD Comments: 1) Advance to low-fat diet when medically feasible 2) Refer to outpatient RD for weight management 3) Follow-up with gastroenterology 4) Continue to monitor I&O, labs, and skin integrity Expected Outcomes/Goals: 1) labs to improve 2) diet to advance 3) f/u in 3-5 days GISELA ORTIZ MD Sep 14, 2024 12:22
--- NOTE | 2024-09-14 14:09 | DVH ---
CHEST RADIOGRAPH Indication: NG placement Technique: Single frontal view of the chest was obtained Comparison: None FINDINGS: Lines and Tubes: None Lungs: No focal consolidation. Pleura: No effusion. No pneumothorax. Cardiomediastinal contours: Unremarkable Bones: No acute osseous abnormality. IMPRESSION: 1. No acute cardiopulmonary disease.
--- NOTE | 2024-09-14 16:09 | DVHPN2 ---
Subjective Patient feeling improved, nausea improving, abdominal pain improving. Reviewed: H&P Changes from previous H/P or p: No Changes General: Per HPI Eyes: No Pain, No Vision change, No Conjunctivae inflammation, No Eyelid inflammation, No Other, No Redness ENT: No Ear pain, No Ear discharge, No Nose pain, No Nose discharge, No Nose congestion, No Mouth pain, No Mouth swelling, No Throat pain, No Throat swelling, No Other Cardiovascular: No Chest Pain, No Palpitations, No Orthopnea, No Paroxysmal Noc. Dyspnea, No Edema, No Lt Headedness, No Other Respiratory: No Cough, No Dry, No Shortness of breath, No SOB with excertion, No Wheezing, No Hemoptysis, No Pleuritic Pain, No Sputum, No Other Gastrointestinal: Nausea, Vomiting, Abdominal Pain; No Diarrhea, No Constipation, No Melena, No Hematochezia, No Other Genitourinary: No Dysuria, No Frequency, No Incontinence, No Hematuria, No Retention, No Other Musculoskeletal: No other, No neck pain, No shoulder pain, No arm pain, No back pain, No hand pain, No leg pain, No foot pain Skin: No Rash, No Lesions, No Jaundice, No Bruising, No Other Objective Vitals Vital Signs Date Time Temp Pulse Resp B/P (MAP) Pulse Ox O2 Delivery O2 Flow Rate FiO2 09/14/24 15:51 81 77 122/81 09/14/24 12:26 97.2 98 97.2 09/13/24 20:00 Room Air* 0 21 Intake/Output Intake and Output 09/14/24 07:00 Intake Total 600 ml Balance 600 ml Intake Oral 600 ml # Voids 5 Exam GEN: Healthy appearing, well-developed, NAD. HEENT: NC/AT; MMM. CV: RRR, no m/r/g. LUNGS: CTAB, no w/r/c. ABD: Right upper quadrant tenderness, bowel sounds present normal EXT: skin Warm, well perfused. no rashes. No clubbing, cyanosis, or edema. NEURO: Ambulating with no limitations. No focal deficits. Medications Current Medications Medications Dose Ordered Sig/Nazia Route Start Time Stop Time Status Last Admin Dose Admin Ceftriaxone Sodium 50 ml @ 100 mls/hr Q24H IV 09/12/24 18:00 09/12/24 17:34 100 MLS/HR Pantoprazole Sodium 40 mg DAILY IV 09/12/24 10:00 09/14/24 09:46 40 MG Metronidazole 100 ml @ 100 mls/hr Q8HR IV 09/11/24 22:00 09/14/24 15:38 100 MLS/HR Sodium Chloride 1,000 ml @ 60 mls/hr [id number] IV 09/11/24 22:00 09/12/24 21:16 60 MLS/HR Acetaminophen/ Hydrocodone Bitart 1 tab Q4HP PRN PO 09/11/24 22:00 09/14/24 13:01 1 TAB Ondansetron HCl 4 mg Q4HP PRN IV 09/11/24 22:00 09/14/24 08:58 4 MG Docusate Sodium 100 mg BIDPRN PRN PO 09/11/24 22:00 Acetaminophen 650 mg Q6HP PRN PO 09/11/24 22:00 09/13/24 21:05 650 MG Morphine Sulfate 2 mg Q4HPRN PRN IV 09/11/24 22:00 09/14/24 15:51 2 MG Nitroglycerin 0.4 mg Q5MINP PRN SL 09/12/24 00:00 Morphine Sulfate 2 mg Q30M PRN IV 09/12/24 00:00 Laboratory Results Laboratory Tests 09/14/24 05:02 09/14/24 05:23 Chemistry Test 09/14/24 05:23 Albumin 3.9 g/dL (3.2-4.8) Calcium Level 9.2 mg/dL (8.7-10.4) Total Protein 6.5 g/dL (5.7-8.2) LFT Test 09/14/24 05:23 Alanine Aminotransferase (ALT) 230 U/L (7-40) H Alkaline Phosphatase 117 U/L (46-116) H Aspartate Amino Transferase (AST) 172 U/L (13-40) H Total Bilirubin 2.8 mg/dL (0.2-1.0) H Urinalysis Test 09/11/24 13:30 09/13/24 12:00 Urine Color Yellow (Yellow) Urine Clarity Turbid (Clear) H Urine pH 6.0 (5.0-9.0) Urine Specific [place] 1.033 (1.001-1.035) Urine Protein Trace (Negative) H Urine Ketones 1+ (Negative) H Urine Blood Negative /uL (Negative) Urine Nitrite Negative (Negative) Urine Bilirubin 1+ (Negative) H Urine Urobilinogen 4 mg/dL (Negative) H Urine Leukocyte Esterase Negative /uL (Negative) Urine RBC 2 /hpf (0 - 4) Urine Microscopic WBC 1 /HPF (0-5) Urine Squamous Epithelial Cells Mod /hpf (<5) Urine Bacteria None seen /hpf (None Seen) Urine Mucus Few (None Seen) Urine Glucose Normal mg/dL (Normal) Urine Test Negative (Negative) Microbiology Microbiology Date/Time Source Procedure Growth Status 09/11/24 22:24 Blood Blood Culture - Preliminary NO GROWTH AFTER 48 HOURS OF INCUBATION. Resulted Labs and/or images reviewed: Labs reviewed by me, Image(s) reviewed by me Assessment/Plan Assessment/Plan History of Present Illness The patient is a 24-year-old female with past medical history of gallstones who presented to [facility] ED with complaint of abdominal pain for the past 3 weeks. Patient reports she has been experiencing abdominal pain rating 8/10 numeric scale, described as sharp, associated with nausea, vomiting, getting worse that prompted this visit. Patient was seen and evaluated in the ED, laboratory data shows WBC 20.0, platelets 455, sodium 138, potassium 4.0, BUN 11, creatinine 0.81, glucose 106, calcium 9.9, lipase 27, AST 92, ALT 59, blood pressure 112/80, heart rate 96, temperature 98.6 F, O2 saturation 98% on room air. Gallbladder ultrasound revealing cholelithiasis, dilated common bile duct measuring 8 mm with possible choledocholithiasis. Patient was given Toradol 30 mg IV x1, please see medication orders section in the computer. On my assessment, patient denied chest pain, no headache, no dizziness, no diaphoresis, no shortness of breaths, no nausea, no vomiting at this moment, no fever, no chills. Patient was admitted for further evaluation and medical management. 09/12 GI and surgery are on board. Both recommending MRCP. MRCP is negative for any choledocholithiasis or any biliary obstruction. GI or surgery either or have informed for transfer through social work supervisor although no order is visible. Transfer center enquiring. We will trend LFTs and T bili and symptoms. And we will follow up with surgery and GI to re-evaluate need for transfer. It is likely that patient has passed the stone. Patient may also require HIDA scan. Holding transfer right now. 09/13 patient is feeling improved. Right upper quadrant pain present although much milder. LFTs are improving, hyperbilirubinemia resolved. Surgery onboard with plan for cholecystectomy for symptomatic cholelithiasis. Taken to OR today. We will follow up with surgery plan. 09/14 postop day 1. Patient in significant amount of pain, having multiple rounds of emesis. Surgery has inserted NG tube on continuous low in's suctioned. We will give patient D5 half-normal NS as she is NPO. Pain control we will change to moderate morphine 2 mg q.4, severe Toradol 15 q.6 max 3 days,. Patient is feeling Zofran, we will start 1st line Benadryl 25 IV q.6, second- line Compazine 10 q.8. Appreciate surgical follow up. Acute choledocholithiasis Acute cholecystitis post-op expected nausea, ileus possible CBD obstruction, ruled out Transaminitis Hyperbilirubinemia Leukocytosis Neutrophilia Multiple body metal piercings -Clear liquid diet which patient is tolerating -IV antibiotics -P.r.n. antiemetics -Prn analgesia -Continue home medications -Surgery consult -GI consult NPO, diet defer to surgery postop. GI prophylaxis-tolerating diet DVT prophylaxis-low patella score no need for Lovenox, minimal ambulation present Tele Full code Plan discussed with: Patient My Orders Orders - MARTHA PHAM MD Procedure Category Date Status Time Comprehensive LAB 09/15/24 Verified Metabolic Panel 04:00 Date of Service: Sep 14, 2024 Billing Provider: MARTHA PHAM MD Common Visit Codes: [id number] INP/OBS CARE(HIGH) MARTHA PHAM MD Sep 14, 2024 16:09
--- NOTE | 2024-09-14 18:04 | DVHPN2 ---
Progress Note - Dictate Date Seen: Sep 14, 2024 Medical Necessity Reason Pt with a Central, PICC or Fol: No Subjective Postop day 1. S/P laparoscopic cholecystectomy Mild postop pain MRCP shows no CBD stone Liver enzymes and bilirubin have trended up today vital signs Vital Sign Date Time Temp Pulse Resp B/P (MAP) Pulse Ox O2 Delivery O2 Flow Rate FiO2 09/14/24 16:20 98.7 77 17 116/68 (84) 95 98.7 09/13/24 20:00 Room Air* 0 21 Total Intake and Output 09/13/24 09/13/24 09/14/24 15:00 23:00 07:00 Intake Total 600 ml Balance 600 ml medications Current Medications Medications Dose Ordered Sig/Nazia Route Start Time Stop Time Status Last Admin Dose Admin Ceftriaxone Sodium 50 ml @ 100 mls/hr Q24H IV 09/12/24 18:00 09/12/24 17:34 100 MLS/HR Pantoprazole Sodium 40 mg DAILY IV 09/12/24 10:00 09/14/24 09:46 40 MG Metronidazole 100 ml @ 100 mls/hr Q8HR IV 09/11/24 22:00 09/14/24 15:38 100 MLS/HR Acetaminophen/ Hydrocodone Bitart 1 tab Q4HP PRN PO 09/11/24 22:00 09/14/24 13:01 1 TAB Ondansetron HCl 4 mg Q4HP PRN IV 09/11/24 22:00 09/14/24 08:58 4 MG Docusate Sodium 100 mg BIDPRN PRN PO 09/11/24 22:00 Acetaminophen 650 mg Q6HP PRN PO 09/11/24 22:00 09/13/24 21:05 650 MG Morphine Sulfate 2 mg Q4HPRN PRN IV 09/11/24 22:00 09/14/24 15:51 2 MG Nitroglycerin 0.4 mg Q5MINP PRN SL 09/12/24 00:00 Morphine Sulfate 2 mg Q30M PRN IV 09/12/24 00:00 Dextrose/Sodium Chloride 1,000 ml @ 100 mls/hr Q10H IV 09/14/24 16:45 Prochlorperazine Edisylate 10 mg Q8HPRN PRN IV 09/14/24 16:45 Diphenhydramine HCl 25 mg Q8HPRN PRN IV 09/14/24 16:45 Ketorolac Tromethamine 15 mg Q6HPRN PRN IV 09/14/24 16:45 09/19/24 16:44 objective General: NAD, AAOX3 Chest: lung espinoza clear to auscultation Heart: RRR, no murmur Abdomen: non-distended, no tenderness to palpation, +BS laboratory and microbiology Laboratory Tests 09/14/24 05:23 09/14/24 05:02 Test 09/14/24 05:23 Range/Units Serum Glucose 126 H 74-106 mg/dL Problems(with codes): (1) Calculus of gallbladder and bile duct with acute cholecystitis without obstruction (2) Elevated liver enzymes (3) Leukocytosis, unspecified (4) Common bile duct dilation (5) Cholelithiasis and cholecystitis without obstruction Prognosis Plan Continue IV antibiotics Continue observation IV fluid hydration and pain control IV PPI; patient is still NPO Monitor labs Dietary Evaluation Review Recommendations by RD: Dietary education by RD Comments: 1) Advance to low-fat diet when medically feasible 2) Refer to outpatient RD for weight management 3) Follow-up with gastroenterology 4) Continue to monitor I&O, labs, and skin integrity Expected Outcomes/Goals: 1) labs to improve 2) diet to advance 3) f/u in 3-5 days Plan discussed with: Patient, Other (None) THOMAS ORTIZ MD Sep 14, 2024 18:04
[2024-09-14] MEDS: PROCHLORPERAZINE EDISYLATE 5 MG/ML 2ML VIAL IV PRN (18:32)
[2024-09-14] MEDS: D5W/SOD CHL 0.45% 1,000 ML IV SCH (18:33)
[2024-09-14] MEDS: diphenhdrAMINE HCL 50 MG/1 ML VL IV PRN (18:33)
[2024-09-14] MEDS: KETOROLAC TROMETH 30 MG/ML 1ML VIAL IV PRN (18:33)
[2024-09-15] VITALS (8 sets, daily range): BP systolic 113–129; BP diastolic 64–87; PULSE 76–103; RESP 17–18; TEMP 97.7–99.5; O2SAT 96–98
--- NOTE | 2024-09-15 07:33 | ECG ---
[facility] Test Date: 2024-09-14 Test Time: 19:14:30 Pat Name: ALESSIA HAMILTON Department: Respiratoy Room: [address] [place] [address] 4 Gender: F Digital Marketing Intern: [id number] : 2000 Requested By: MARTHA FREIRE Order Number: [id number] Reading MD: Smith Aguilar Measurements Intervals [place] Rate: 77 P: 75 IA: 145 QRS: 68 QRSD: 94 T: 34 QT: 402 QTc: 455 Interpretive Statements Sinus rhythm Probable left atrial enlargement Electronically Signed On 09-15-2024 13:25:22 PDT by Smith Aguilar Please click the below link to view image of tracing.
[2024-09-15 07:38] LABS: Albumin 3.9 g/dL (3.2-4.8); Anion Gap 14 (5-15); BUN/Creatinine Ratio 9.5 (10.0-20.0); Calcium 9.8 mg/dL (8.7-10.4); Carbon Dioxide 21 mmol/L (20-31); Chloride 105 mmol/L (98-107); Sodium 140 mmol/L (136-145); Total Protein 6.6 g/dL (5.7-8.2)
[2024-09-15 07:39] LABS: Alanine Aminotransferase 331 U/L (7-40); Alkaline Phosphatase 149 U/L (46-116); Bilirubin, Total 4.1 mg/dL (0.2-1.0); Blood Urea Nitrogen 7 mg/dL (9-23); Glucose 113 mg/dL (74-106); Potassium 3.3 mmol/L (3.5-5.1)
[2024-09-15 09:24] LABS: Hematocrit 34.5 % (36.0-46.0); Hemoglobin 12.0 g/dL (12.2-16.2); Mean Corpuscular Hemoglobin 29.7 pg (28.0-32.0); Mean Corpuscular Volume 85.1 fL (80.0-100.0); Nucleated Red Blood Cells % 0.0 %
--- NOTE | 2024-09-15 10:16 | DVHPN2 ---
Subjective Patient feeling improved, nausea improving, abdominal pain improving. Reviewed: H&P Changes from previous H/P or p: No Changes General: Per HPI Eyes: No Pain, No Vision change, No Conjunctivae inflammation, No Eyelid inflammation, No Other, No Redness ENT: No Ear pain, No Ear discharge, No Nose pain, No Nose discharge, No Nose congestion, No Mouth pain, No Mouth swelling, No Throat pain, No Throat swelling, No Other Cardiovascular: No Chest Pain, No Palpitations, No Orthopnea, No Paroxysmal Noc. Dyspnea, No Edema, No Lt Headedness, No Other Respiratory: No Cough, No Dry, No Shortness of breath, No SOB with excertion, No Wheezing, No Hemoptysis, No Pleuritic Pain, No Sputum, No Other Gastrointestinal: Nausea, Vomiting, Abdominal Pain; No Diarrhea, No Constipation, No Melena, No Hematochezia, No Other Genitourinary: No Dysuria, No Frequency, No Incontinence, No Hematuria, No Retention, No Other Musculoskeletal: No other, No neck pain, No shoulder pain, No arm pain, No back pain, No hand pain, No leg pain, No foot pain Skin: No Rash, No Lesions, No Jaundice, No Bruising, No Other Objective Vitals Vital Signs Date Time Temp Pulse Resp B/P (MAP) Pulse Ox O2 Delivery O2 Flow Rate FiO2 09/15/24 09:09 76 17 129/87 09/15/24 09:01 97.7 96 97.7 09/14/24 20:00 Room Air* 0 21 Intake/Output Intake and Output 09/15/24 07:00 Intake Total 1065 ml Balance 1065 ml Intake Oral 0 ml IV Total 1065 ml # Voids 4 Exam GEN: Healthy appearing, well-developed, NAD. HEENT: NC/AT; MMM. CV: RRR, no m/r/g. LUNGS: CTAB, no w/r/c. ABD: Right upper quadrant tenderness, bowel sounds present normal EXT: skin Warm, well perfused. no rashes. No clubbing, cyanosis, or edema. NEURO: Ambulating with no limitations. No focal deficits. Medications Current Medications Medications Dose Ordered Sig/Nazia Route Start Time Stop Time Status Last Admin Dose Admin Ceftriaxone Sodium 50 ml @ 100 mls/hr Q24H IV 09/12/24 18:00 09/14/24 18:45 100 MLS/HR Pantoprazole Sodium 40 mg DAILY IV 09/12/24 10:00 09/14/24 09:46 40 MG Metronidazole 100 ml @ 100 mls/hr Q8HR IV 09/11/24 22:00 09/15/24 05:42 100 MLS/HR Acetaminophen/ Hydrocodone Bitart 1 tab Q4HP PRN PO 09/11/24 22:00 09/14/24 13:01 1 TAB Ondansetron HCl 4 mg Q4HP PRN IV 09/11/24 22:00 09/14/24 08:58 4 MG Docusate Sodium 100 mg BIDPRN PRN PO 09/11/24 22:00 Acetaminophen 650 mg Q6HP PRN PO 09/11/24 22:00 09/13/24 21:05 650 MG Morphine Sulfate 2 mg Q4HPRN PRN IV 09/11/24 22:00 09/15/24 09:09 2 MG Nitroglycerin 0.4 mg Q5MINP PRN SL 09/12/24 00:00 Morphine Sulfate 2 mg Q30M PRN IV 09/12/24 00:00 Dextrose/Sodium Chloride 1,000 ml @ 100 mls/hr Q10H IV 09/14/24 16:45 09/15/24 02:45 100 MLS/HR Prochlorperazine Edisylate 10 mg Q8HPRN PRN IV 09/14/24 16:45 09/15/24 05:42 10 MG Diphenhydramine HCl 25 mg Q8HPRN PRN IV 09/14/24 16:45 09/15/24 05:42 25 MG Ketorolac Tromethamine 15 mg Q6HPRN PRN IV 09/14/24 16:45 09/19/24 16:44 09/14/24 18:33 15 MG Laboratory Results Laboratory Tests 09/15/24 06:15 Chemistry Test 09/15/24 06:15 Albumin 3.9 g/dL (3.2-4.8) Calcium Level 9.8 mg/dL (8.7-10.4) Total Protein 6.6 g/dL (5.7-8.2) LFT Test 09/15/24 06:15 Alanine Aminotransferase (ALT) 331 U/L (7-40) H Alkaline Phosphatase 149 U/L (46-116) H Aspartate Amino Transferase (AST) 243 U/L (13-40) H Total Bilirubin 4.1 mg/dL (0.2-1.0) H Urinalysis Test 09/11/24 13:30 09/13/24 12:00 Urine Color Yellow (Yellow) Urine Clarity Turbid (Clear) H Urine pH 6.0 (5.0-9.0) Urine Specific [place] 1.033 (1.001-1.035) Urine Protein Trace (Negative) H Urine Ketones 1+ (Negative) H Urine Blood Negative /uL (Negative) Urine Nitrite Negative (Negative) Urine Bilirubin 1+ (Negative) H Urine Urobilinogen 4 mg/dL (Negative) H Urine Leukocyte Esterase Negative /uL (Negative) Urine RBC 2 /hpf (0 - 4) Urine Microscopic WBC 1 /HPF (0-5) Urine Squamous Epithelial Cells Mod /hpf (<5) Urine Bacteria None seen /hpf (None Seen) Urine Mucus Few (None Seen) Urine Glucose Normal mg/dL (Normal) Urine Test Negative (Negative) Microbiology Microbiology Date/Time Source Procedure Growth Status 09/11/24 22:24 Blood Blood Culture - Preliminary NO GROWTH AFTER 72 HOURS OF INCUBATION. Resulted Labs and/or images reviewed: Labs reviewed by me, Image(s) reviewed by me Assessment/Plan Assessment/Plan History of Present Illness The patient is a 24-year-old female with past medical history of gallstones who presented to [facility] ED with complaint of abdominal pain for the past 3 weeks. Patient reports she has been experiencing abdominal pain rating 8/10 numeric scale, described as sharp, associated with nausea, vomiting, getting worse that prompted this visit. Patient was seen and evaluated in the ED, laboratory data shows WBC 20.0, platelets 455, sodium 138, potassium 4.0, BUN 11, creatinine 0.81, glucose 106, calcium 9.9, lipase 27, AST 92, ALT 59, blood pressure 112/80, heart rate 96, temperature 98.6 F, O2 saturation 98% on room air. Gallbladder ultrasound revealing cholelithiasis, dilated common bile duct measuring 8 mm with possible choledocholithiasis. Patient was given Toradol 30 mg IV x1, please see medication orders section in the computer. On my assessment, patient denied chest pain, no headache, no dizziness, no diaphoresis, no shortness of breaths, no nausea, no vomiting at this moment, no fever, no chills. Patient was admitted for further evaluation and medical management. 09/12 GI and surgery are on board. Both recommending MRCP. MRCP is negative for any choledocholithiasis or any biliary obstruction. GI or surgery either or have informed for transfer through addiction social worker although no order is visible. Transfer center enquiring. We will trend LFTs and T bili and symptoms. And we will follow up with surgery and GI to re-evaluate need for transfer. It is likely that patient has passed the stone. Patient may also require HIDA scan. Holding transfer right now. 09/13 patient is feeling improved. Right upper quadrant pain present although much milder. LFTs are improving, hyperbilirubinemia resolved. Surgery onboard with plan for cholecystectomy for symptomatic cholelithiasis. Taken to OR today. We will follow up with surgery plan. 09/14 postop day 1. Patient in significant amount of pain, having multiple rounds of emesis. Surgery has inserted NG tube on continuous low in's suctioned. We will give patient D5 half-normal NS as she is NPO. Pain control we will change to moderate morphine 2 mg q.4, severe Toradol 15 q.6 max 3 days,. Patient is feeling Zofran, we will start 1st line Benadryl 25 IV q.6, second- line Compazine 10 q.8. Appreciate surgical follow up. 09/15 postop day 2. Nausea improving. Overnight she has 200 cc coffee- ground/dark brown output. Surgery aware. Type and cross today. Hemoglobin is stable. Abdominal pain is improving but no bowel sounds yet. No drains noted. Abdominal binder present. Patient is begging for some ice chips. She is informed only 1 ice chip at a time and only 2 moisturize oral cavity. RN made aware of this. Appreciate surgical follow up. We will continuing prophylactic antibiotics ceftriaxone and Flagyl. Diagnosis: Acute choledocholithiasis Acute cholecystitis post-op expected nausea, ileus possible CBD obstruction, ruled out Transaminitis Hyperbilirubinemia Leukocytosis Neutrophilia Multiple body metal piercings Plan: -Clear liquid diet which patient is tolerating -IV antibiotics -P.r.n. antiemetics -Prn analgesia -Continue home medications -Surgery consult -GI consult NPO, diet defer to surgery postop. GI prophylaxis-tolerating diet DVT prophylaxis-low patella score no need for Lovenox, minimal ambulation present Tele Full code Plan discussed with: Patient My Orders Orders - MARTHA PHAM MD Procedure Category Date Status Time D5w/Sod Chl 0.45% PHA 09/14/24 In Process (D5w 1/2ns) 16:45 Prochlorperazine Inj PHA 09/14/24 In Process (Compazine Inj) 16:45 Diphenhdramine PHA 09/14/24 In Process Injection (Benadryl 16:45 Ketorolac Injection PHA 09/14/24 In Process (Toradol Injection) 16:45 Ng To Lcs JESÚS 09/14/24 In Process 16:43 Date of Service: Sep 15, 2024 Billing Provider: MARTHA PHAM MD Common Visit Codes: [id number] INP/OBS CARE(HIGH) MARTHA PHAM MD Sep 15, 2024 10:16
[2024-09-15] MEDS ORDERED: MORPHINE SULFATE INJ 2 MG/ml SYRG IV PRN (11:45)
--- NOTE | 2024-09-15 14:46 | DVH ---
MRI abdomen/ MRCP without intravenous contrast HISTORY: Evaluate common bile duct COMPARISON: MRI MRCP MRI on DOS: 09/12/24 PROCEDURE: Multiplanar multisequence MRI images were obtained of the abdomen without intravenous cont rast Additional MIPS were obtained of the biliary system. FINDINGS: Bile ducts: -Intrahepatic ducts: Non-dilated. -Extrahepatic ducts: Non-dilated. -Common bile duct: Non-dilated. -Filling defects: No filling defects -Stricture: None. Gallbladder: Post cholecystectomy. Pancreas: Pancreatic duct: No ductal dilatation. Lesions: None. Liver: Signal intensity: Homogenous. Contour: Smooth. Size: Normal. Lesions: No focal liver lesion. ADDITIONAL FINDINGS: Lung base: Dependent atelectasis. Pancreas: Normal. Spleen:Normal. Bowel: Normal. Adrenal glands:Normal. Kidneys and ureters:Normal. Lymph nodes:Normal. Peritoneum:Normal. Vessels: Normal. Abdominal wall: Normal. Bone: No aggressive bone lesions IMPRESSION: Post cholecystectomy. No acute or suspicious findings. Common bile duct is unremarkable.
--- NOTE | 2024-09-15 16:46 | DVHPN2 ---
Progress Note Date Seen: Sep 15, 2024 Medical Necessity Reason Pt with a Central, PICC or Fol: No Objective vital signs Vital Sign Date Time Temp Pulse Resp B/P (MAP) Pulse Ox O2 Delivery O2 Flow Rate FiO2 09/15/24 13:00 98.8 94 18 116/74 (88) 96 98.8 09/15/24 08:00 Room Air* 0 21 Total Intake and Output 09/14/24 09/14/24 09/15/24 15:00 23:00 07:00 Intake Total 100 ml 965 ml 0 ml Balance 100 ml 965 ml 0 ml medications Current Medications Medications Dose Ordered Sig/Nazia Route Start Time Stop Time Status Last Admin Dose Admin Ceftriaxone Sodium 50 ml @ 100 mls/hr Q24H IV 09/12/24 18:00 09/14/24 18:45 100 MLS/HR Pantoprazole Sodium 40 mg DAILY IV 09/12/24 10:00 09/15/24 10:38 40 MG Metronidazole 100 ml @ 100 mls/hr Q8HR IV 09/11/24 22:00 09/15/24 14:35 100 MLS/HR Acetaminophen/ Hydrocodone Bitart 1 tab Q4HP PRN PO 09/11/24 22:00 09/14/24 13:01 1 TAB Ondansetron HCl 4 mg Q4HP PRN IV 09/11/24 22:00 09/14/24 08:58 4 MG Docusate Sodium 100 mg BIDPRN PRN PO 09/11/24 22:00 Acetaminophen 650 mg Q6HP PRN PO 09/11/24 22:00 09/13/24 21:05 650 MG Nitroglycerin 0.4 mg Q5MINP PRN SL 09/12/24 00:00 Morphine Sulfate 2 mg Q30M PRN IV 09/12/24 00:00 Dextrose/Sodium Chloride 1,000 ml @ 100 mls/hr Q10H IV 09/14/24 16:45 09/15/24 02:45 100 MLS/HR Prochlorperazine Edisylate 10 mg Q8HPRN PRN IV 09/14/24 16:45 09/15/24 05:42 10 MG Diphenhydramine HCl 25 mg Q8HPRN PRN IV 09/14/24 16:45 09/15/24 05:42 25 MG Ketorolac Tromethamine 15 mg Q6HPRN PRN IV 09/14/24 16:45 09/19/24 16:44 09/14/24 18:33 15 MG Morphine Sulfate 2 mg Q4HPRN PRN IV 09/15/24 11:45 laboratory and microbiology Laboratory Tests 09/15/24 06:15 Test 09/15/24 06:15 Range/Units Serum Glucose 113 H 74-106 mg/dL Microbiology Date/Time Source Procedure Growth Status 09/11/24 22:24 Blood Blood Culture - Preliminary NO GROWTH AFTER 72 HOURS OF INCUBATION. Resulted Problem List/Assessment/Plan Problem List/Assessment/Plan AFEBRILE VSS ABD SOFT LESS TENDER POD 2 LFT ELEVATED MRCP NORMAL CBD WITH NO CBD STONE/BLOCKAGE REPEAT LABS AM NG IN PLACE DRAING BILE STAINED FLUID CONTINUE CLOSE OBSERVATION NURSE AT BEDSIDE Plan discussed with: Patient My Orders My Orders Orders - GISELA ORTIZ MD Procedure Category Date Status Time Mrcp Mri MRI 09/15/24 Resulted 09:09 Dietary Evaluation Review Recommendations by RD: Dietary education by RD Comments: 1) Advance to low-fat diet when medically feasible 2) Refer to outpatient RD for weight management 3) Follow-up with gastroenterology 4) Continue to monitor I&O, labs, and skin integrity Expected Outcomes/Goals: 1) labs to improve 2) diet to advance 3) f/u in 3-5 days GISELA ORTZI MD Sep 15, 2024 16:46
[2024-09-16] VITALS (7 sets, daily range): BP systolic 115–131; BP diastolic 81–87; PULSE 77–100; RESP 17–19; TEMP 98.1–98.8; O2SAT 97–98
[2024-09-16 06:36] LABS: Hematocrit 33.4 % (36.0-46.0); Hemoglobin 11.6 g/dL (12.2-16.2); Mean Corpuscular Hemoglobin 30.4 pg (28.0-32.0); Mean Corpuscular Volume 87.1 fL (80.0-100.0); Nucleated Red Blood Cells % 0.1 %
[2024-09-16 06:41] LABS: Chloride 106 mmol/L (98-107); Sodium 141 mmol/L (136-145)
[2024-09-16 06:42] LABS: Anion Gap 11 (5-15); Calcium 9.3 mg/dL (8.7-10.4); Carbon Dioxide 24 mmol/L (20-31)
[2024-09-16 06:47] LABS: BUN/Creatinine Ratio 10.9 (10.0-20.0)
[2024-09-16 06:53] LABS: Blood Urea Nitrogen 7 mg/dL (9-23); Glucose 111 mg/dL (74-106); Potassium 3.0 mmol/L (3.5-5.1)
--- NOTE | 2024-09-16 09:39 | DVHPN2 ---
Subjective Patient feeling improved, nausea improving, abdominal pain improving. Reviewed: H&P Changes from previous H/P or p: No Changes General: Per HPI Eyes: No Pain, No Vision change, No Conjunctivae inflammation, No Eyelid inflammation, No Other, No Redness ENT: No Ear pain, No Ear discharge, No Nose pain, No Nose discharge, No Nose congestion, No Mouth pain, No Mouth swelling, No Throat pain, No Throat swelling, No Other Cardiovascular: No Chest Pain, No Palpitations, No Orthopnea, No Paroxysmal Noc. Dyspnea, No Edema, No Lt Headedness, No Other Respiratory: No Cough, No Dry, No Shortness of breath, No SOB with excertion, No Wheezing, No Hemoptysis, No Pleuritic Pain, No Sputum, No Other Gastrointestinal: Nausea, Vomiting, Abdominal Pain; No Diarrhea, No Constipation, No Melena, No Hematochezia, No Other Genitourinary: No Dysuria, No Frequency, No Incontinence, No Hematuria, No Retention, No Other Musculoskeletal: No other, No neck pain, No shoulder pain, No arm pain, No back pain, No hand pain, No leg pain, No foot pain Skin: No Rash, No Lesions, No Jaundice, No Bruising, No Other Objective Vitals Vital Signs Date Time Temp Pulse Resp B/P (MAP) Pulse Ox O2 Delivery O2 Flow Rate FiO2 09/16/24 08:30 98.5 92 19 118/83 (95) 97 98.5 09/15/24 20:00 Room Air* 0 21 Intake/Output Intake and Output 09/16/24 07:00 Intake Total 1330 ml Balance 1330 ml Intake Oral 0 ml IV Total 1330 ml # Voids 3 Exam GEN: Healthy appearing, well-developed, NAD. HEENT: NC/AT; MMM. CV: RRR, no m/r/g. LUNGS: CTAB, no w/r/c. ABD: Right upper quadrant tenderness, bowel sounds present normal EXT: skin Warm, well perfused. no rashes. No clubbing, cyanosis, or edema. NEURO: Ambulating with no limitations. No focal deficits. Medications Current Medications Medications Dose Ordered Sig/Nazia Route Start Time Stop Time Status Last Admin Dose Admin Ceftriaxone Sodium 50 ml @ 100 mls/hr Q24H IV 09/12/24 18:00 09/15/24 18:07 100 MLS/HR Pantoprazole Sodium 40 mg DAILY IV 09/12/24 10:00 09/16/24 09:22 40 MG Metronidazole 100 ml @ 100 mls/hr Q8HR IV 09/11/24 22:00 09/16/24 06:06 100 MLS/HR Acetaminophen/ Hydrocodone Bitart 1 tab Q4HP PRN PO 09/11/24 22:00 09/14/24 13:01 1 TAB Ondansetron HCl 4 mg Q4HP PRN IV 09/11/24 22:00 09/14/24 08:58 4 MG Docusate Sodium 100 mg BIDPRN PRN PO 09/11/24 22:00 Acetaminophen 650 mg Q6HP PRN PO 09/11/24 22:00 09/13/24 21:05 650 MG Nitroglycerin 0.4 mg Q5MINP PRN SL 09/12/24 00:00 Morphine Sulfate 2 mg Q30M PRN IV 09/12/24 00:00 Dextrose/Sodium Chloride 1,000 ml @ 100 mls/hr Q10H IV 09/14/24 16:45 09/16/24 09:12 100 MLS/HR Prochlorperazine Edisylate 10 mg Q8HPRN PRN IV 09/14/24 16:45 09/15/24 23:19 10 MG Diphenhydramine HCl 25 mg Q8HPRN PRN IV 09/14/24 16:45 09/15/24 21:53 25 MG Ketorolac Tromethamine 15 mg Q6HPRN PRN IV 09/14/24 16:45 09/19/24 16:44 09/14/24 18:33 15 MG Morphine Sulfate 2 mg Q4HPRN PRN IV 09/15/24 11:45 Laboratory Results Laboratory Tests 09/16/24 05:43 Chemistry Test 09/16/24 05:43 Albumin Pending Calcium Level 9.3 mg/dL (8.7-10.4) Total Protein Pending LFT Test 09/16/24 05:43 Alanine Aminotransferase (ALT) Pending Alkaline Phosphatase Pending Aspartate Amino Transferase (AST) Pending Direct Bilirubin Pending Total Bilirubin Pending Urinalysis Test 09/11/24 13:30 09/13/24 12:00 Urine Color Yellow (Yellow) Urine Clarity Turbid (Clear) H Urine pH 6.0 (5.0-9.0) Urine Specific [place] 1.033 (1.001-1.035) Urine Protein Trace (Negative) H Urine Ketones 1+ (Negative) H Urine Blood Negative /uL (Negative) Urine Nitrite Negative (Negative) Urine Bilirubin 1+ (Negative) H Urine Urobilinogen 4 mg/dL (Negative) H Urine Leukocyte Esterase Negative /uL (Negative) Urine RBC 2 /hpf (0 - 4) Urine Microscopic WBC 1 /HPF (0-5) Urine Squamous Epithelial Cells Mod /hpf (<5) Urine Bacteria None seen /hpf (None Seen) Urine Mucus Few (None Seen) Urine Glucose Normal mg/dL (Normal) Urine Test Negative (Negative) Microbiology Microbiology Date/Time Source Procedure Growth Status 09/11/24 22:24 Blood Blood Culture - Preliminary NO GROWTH AFTER 72 HOURS OF INCUBATION. Resulted Labs and/or images reviewed: Labs reviewed by me, Image(s) reviewed by me Assessment/Plan Assessment/Plan History of Present Illness The patient is a 24-year-old female with past medical history of gallstones who presented to [facility] ED with complaint of abdominal pain for the past 3 weeks. Patient reports she has been experiencing abdominal pain rating 8/10 numeric scale, described as sharp, associated with nausea, vomiting, getting worse that prompted this visit. Patient was seen and evaluated in the ED, laboratory data shows WBC 20.0, platelets 455, sodium 138, potassium 4.0, BUN 11, creatinine 0.81, glucose 106, calcium 9.9, lipase 27, AST 92, ALT 59, blood pressure 112/80, heart rate 96, temperature 98.6 F, O2 saturation 98% on room air. Gallbladder ultrasound revealing cholelithiasis, dilated common bile duct measuring 8 mm with possible choledocholithiasis. Patient was given Toradol 30 mg IV x1, please see medication orders section in the computer. On my assessment, patient denied chest pain, no headache, no dizziness, no diaphoresis, no shortness of breaths, no nausea, no vomiting at this moment, no fever, no chills. Patient was admitted for further evaluation and medical management. 09/12 GI and surgery are on board. Both recommending MRCP. MRCP is negative for any choledocholithiasis or any biliary obstruction. GI or surgery either or have informed for transfer through social science instructor although no order is visible. Transfer center enquiring. We will trend LFTs and T bili and symptoms. And we will follow up with surgery and GI to re-evaluate need for transfer. It is likely that patient has passed the stone. Patient may also require HIDA scan. Holding transfer right now. 09/13 patient is feeling improved. Right upper quadrant pain present although much milder. LFTs are improving, hyperbilirubinemia resolved. Surgery onboard with plan for cholecystectomy for symptomatic cholelithiasis. Taken to OR today. We will follow up with surgery plan. 09/14 postop day 1. Patient in significant amount of pain, having multiple rounds of emesis. Surgery has inserted NG tube on continuous low in's suctioned. We will give patient D5 half-normal NS as she is NPO. Pain control we will change to moderate morphine 2 mg q.4, severe Toradol 15 q.6 max 3 days,. Patient is feeling Zofran, we will start 1st line Benadryl 25 IV q.6, second- line Compazine 10 q.8. Appreciate surgical follow up. 09/15 postop day 2. Nausea improving. Overnight she has 200 cc coffee- ground/dark brown output. Surgery aware. Type and cross today. Hemoglobin is stable. Abdominal pain is improving but no bowel sounds yet. No drains noted. Abdominal binder present. Patient is begging for some ice chips. She is informed only 1 ice chip at a time and only 2 moisturize oral cavity. RN made aware of this. Appreciate surgical follow up. We will continuing prophylactic antibiotics ceftriaxone and Flagyl. 09/16 postop day 3. Patient is very anxious and wants the NG tube out. End of last shift daytime biliary output from NG tube was 250 cc, this a.m. it is 500 cc. But patient is having bowel sounds, passing gas, nausea significantly improved, tolerating ice chips,. Defer discontinuation of NG tube surgery. We will continue IV antibiotics, discontinue prn Compazine and prn Benadryl. We will keep prn Zofran for nausea. Continue p.r.n. analgesics.. Hypokalemic, given K rider. 40 mEq. Pending hepatic panel. Hemoglobin stable. If surgery decides to keep it NG tube, patient will possibly need PPN, defer to surgery. Today goal possibly remove NG tube through surgery recommendations. Appreciate surgery follow up. Diagnosis: Acute choledocholithiasis Acute cholecystitis post-op expected nausea, ileus possible CBD obstruction, ruled out Transaminitis Hyperbilirubinemia Leukocytosis Neutrophilia Multiple body metal piercings Plan: -Clear liquid diet which patient is tolerating -IV antibiotics -P.r.n. antiemetics -Prn analgesia -Continue home medications -Surgery consult -GI consult NPO, diet defer to surgery postop. GI prophylaxis-tolerating diet DVT prophylaxis-low patella score no need for Lovenox, minimal ambulation present Tele Full code Plan discussed with: Patient My Orders Orders - MARTHA PHAM MD Procedure Category Date Status Time Morphine Sulfate PHA 09/15/24 In Process Injection 11:45 Hepatic Panel LAB 09/16/24 In Process 09:26 Potassium Chloride PHA 09/16/24 Logged (Potassium Chloride). 09:30 Date of Service: Sep 16, 2024 Billing Provider: MARTHA PHAM MD Common Visit Codes: [id number] INP/OBS CARE(HIGH) MARTHA PHAM MD Sep 16, 2024 09:39
[2024-09-16 09:47] LABS: Albumin 3.7 g/dL (3.2-4.8); Bilirubin, Total 1.2 mg/dL (0.2-1.0); Total Protein 6.2 g/dL (5.7-8.2)
[2024-09-16 09:48] LABS: Alanine Aminotransferase 352.0 U/L (7-40); Alkaline Phosphatase 139.0 U/L (46-116); Bilirubin, Direct 0.8 mg/dL (<0.3)
[2024-09-16] MEDS: POTASSIUM CHLORIDE 40 MEQ, LIDOCAINE 1% (LOCAL ANESTH.) 4 ML in SODIUM CHL 0.9% 250 ML IV ONE (11:04)
--- NOTE | 2024-09-16 17:05 | DVHPN2 ---
Progress Note Date Seen: Sep 16, 2024 Medical Necessity Reason Pt with a Central, PICC or Fol: No Objective vital signs Vital Sign Date Time Temp Pulse Resp B/P (MAP) Pulse Ox O2 Delivery O2 Flow Rate FiO2 09/16/24 16:56 98.7 79 17 122/81 (95) 98 98.7 09/15/24 20:00 Room Air* 0 21 Total Intake and Output 09/15/24 09/15/24 09/16/24 15:00 23:00 07:00 Intake Total 1330 ml Balance 1330 ml medications Current Medications Medications Dose Ordered Sig/Nazia Route Start Time Stop Time Status Last Admin Dose Admin Ceftriaxone Sodium 50 ml @ 100 mls/hr Q24H IV 09/12/24 18:00 09/15/24 18:07 100 MLS/HR Pantoprazole Sodium 40 mg DAILY IV 09/12/24 10:00 09/16/24 09:22 40 MG Metronidazole 100 ml @ 100 mls/hr Q8HR IV 09/11/24 22:00 09/16/24 06:06 100 MLS/HR Acetaminophen/ Hydrocodone Bitart 1 tab Q4HP PRN PO 09/11/24 22:00 09/14/24 13:01 1 TAB Ondansetron HCl 4 mg Q4HP PRN IV 09/11/24 22:00 09/14/24 08:58 4 MG Docusate Sodium 100 mg BIDPRN PRN PO 09/11/24 22:00 Acetaminophen 650 mg Q6HP PRN PO 09/11/24 22:00 09/13/24 21:05 650 MG Nitroglycerin 0.4 mg Q5MINP PRN SL 09/12/24 00:00 Morphine Sulfate 2 mg Q30M PRN IV 09/12/24 00:00 Dextrose/Sodium Chloride 1,000 ml @ 100 mls/hr Q10H IV 09/14/24 16:45 09/16/24 09:12 100 MLS/HR Ketorolac Tromethamine 15 mg Q6HPRN PRN IV 09/14/24 16:45 09/19/24 16:44 09/14/24 18:33 15 MG Morphine Sulfate 2 mg Q4HPRN PRN IV 09/15/24 11:45 laboratory and microbiology Laboratory Tests 09/16/24 05:43 Test 09/16/24 05:43 Range/Units Serum Glucose 111 H 74-106 mg/dL Microbiology Date/Time Source Procedure Growth Status 09/11/24 22:24 Blood Blood Culture - Preliminary NO GROWTH AFTER 72 HOURS OF INCUBATION. Resulted Problem List/Assessment/Plan Problem List/Assessment/Plan AFEBRILE VSS ABD SOFT LESS TENDER POD 3 LFT ELEVATED BUT TRENDING DOWN MRCP NORMAL CBD WITH NO CBD STONE/BLOCKAGE REPEAT LABS AM NG IN PLACE DRAING BILE STAINED FLUID DC NG ALLOW CLEAR LIQUIDS CONTINUE CLOSE OBSERVATION NURSE AT BEDSIDE Plan discussed with: Patient Dietary Evaluation Review Recommendations by RD: Dietary education by RD Comments: 1) Advance to low-fat diet when medically feasible 2) Refer to outpatient RD for weight management 3) Follow-up with gastroenterology 4) Continue to monitor I&O, labs, and skin integrity Expected Outcomes/Goals: 1) labs to improve 2) diet to advance 3) f/u in 3-5 days GISELA ORTIZ MD Sep 16, 2024 17:05
--- NOTE | 2024-09-16 22:25 | DVHPN2 ---
Progress Note - Dictate Date Seen: Sep 16, 2024 Medical Necessity Reason Pt with a Central, PICC or Fol: No Subjective Postop day 3. S/P laparoscopic cholecystectomy Mild postop pain; mild postop ileus resolving MRCP shows no CBD stone Liver enzymes and bilirubin are trending downwards Patient feels better, denies nausea vomiting vital signs Vital Sign Date Time Temp Pulse Resp B/P (MAP) Pulse Ox O2 Delivery O2 Flow Rate FiO2 09/16/24 21:00 98.2 83 18 119/81 (94) 98 98.2 09/16/24 08:30 Room Air* 0 21 Total Intake and Output 09/15/24 09/15/24 09/16/24 15:00 23:00 07:00 Intake Total 1330 ml Balance 1330 ml medications Current Medications Medications Dose Ordered Sig/Nazia Route Start Time Stop Time Status Last Admin Dose Admin Ceftriaxone Sodium 50 ml @ 100 mls/hr Q24H IV 09/12/24 18:00 09/15/24 18:07 100 MLS/HR Pantoprazole Sodium 40 mg DAILY IV 09/12/24 10:00 09/16/24 09:22 40 MG Metronidazole 100 ml @ 100 mls/hr Q8HR IV 09/11/24 22:00 09/16/24 06:06 100 MLS/HR Acetaminophen/ Hydrocodone Bitart 1 tab Q4HP PRN PO 09/11/24 22:00 09/14/24 13:01 1 TAB Ondansetron HCl 4 mg Q4HP PRN IV 09/11/24 22:00 09/14/24 08:58 4 MG Docusate Sodium 100 mg BIDPRN PRN PO 09/11/24 22:00 Acetaminophen 650 mg Q6HP PRN PO 09/11/24 22:00 09/13/24 21:05 650 MG Nitroglycerin 0.4 mg Q5MINP PRN SL 09/12/24 00:00 Morphine Sulfate 2 mg Q30M PRN IV 09/12/24 00:00 Dextrose/Sodium Chloride 1,000 ml @ 100 mls/hr Q10H IV 09/14/24 16:45 09/16/24 18:45 100 MLS/HR Ketorolac Tromethamine 15 mg Q6HPRN PRN IV 09/14/24 16:45 09/19/24 16:44 09/14/24 18:33 15 MG Morphine Sulfate 2 mg Q4HPRN PRN IV 09/15/24 11:45 objective General: NAD, AAOX3 Chest: lung espinoza clear to auscultation Heart: RRR, no murmur Abdomen: non-distended, no tenderness to palpation, +BS laboratory and microbiology Laboratory Tests 09/16/24 05:43 Test 09/16/24 05:43 Range/Units Serum Glucose 111 H 74-106 mg/dL Problems(with codes): (1) Calculus of gallbladder and bile duct with acute cholecystitis without obstruction (2) Elevated liver enzymes (3) Leukocytosis, unspecified (4) Common bile duct dilation (5) Cholelithiasis and cholecystitis without obstruction Prognosis Plan Continue IV antibiotics Continue physical therapy and ambulation Continue IV ppi Protonix 40 mg daily Gastric occult blood positive like likely related to NG tube trauma, H&H is stable Outpatient follow up with GI Services upon discharge to discuss elective endoscopy Avoid aspirin NSAIDs smoking alcohol NG tube has been discontinued, start ice chips and clear liquids Dietary Evaluation Review Recommendations by RD: Dietary education by RD Comments: 1) Advance to low-fat diet when medically feasible 2) Refer to outpatient RD for weight management 3) Follow-up with gastroenterology 4) Continue to monitor I&O, labs, and skin integrity Expected Outcomes/Goals: 1) labs to improve 2) diet to advance 3) f/u in 3-5 days Plan discussed with: Patient THOMAS ORTIZ MD Sep 16, 2024 22:25
[2024-09-17] VITALS (7 sets, daily range): BP systolic 103–116; BP diastolic 72–80; PULSE 67–105; RESP 17–20; TEMP 97.8–99.2; O2SAT 96–99
[2024-09-17 05:41] LABS: Hematocrit 34.0 % (36.0-46.0); Hemoglobin 11.5 g/dL (12.2-16.2); Mean Corpuscular Hemoglobin 29.4 pg (28.0-32.0); Mean Corpuscular Volume 86.8 fL (80.0-100.0); Nucleated Red Blood Cells % 0.0 %
[2024-09-17 06:00] LABS: Anion Gap 11 (5-15); Calcium 8.8 mg/dL (8.7-10.4); Carbon Dioxide 21 mmol/L (20-31); Glucose 105 mg/dL (74-106); Sodium 139 mmol/L (136-145); Total Protein 6.0 g/dL (5.7-8.2)
[2024-09-17 06:01] LABS: Alanine Aminotransferase 271 U/L (7-40); Albumin 3.6 g/dL (3.2-4.8); Alkaline Phosphatase 118 U/L (46-116); BUN/Creatinine Ratio 8.2 (10.0-20.0); Bilirubin, Total 1.0 mg/dL (0.2-1.0); Blood Urea Nitrogen < 5 mg/dL (9-23); Chloride 107 mmol/L (98-107); Potassium 3.3 mmol/L (3.5-5.1)
[2024-09-17] MEDS: POTASSIUM EFFERVESENT TAB 25 MEQ PO ONE (09:44)
--- NOTE | 2024-09-17 10:01 | DVHPN2 ---
Subjective Patient feeling improved, nausea improving, abdominal pain improving. Reviewed: H&P Changes from previous H/P or p: No Changes General: Per HPI Eyes: No Pain, No Vision change, No Conjunctivae inflammation, No Eyelid inflammation, No Other, No Redness ENT: No Ear pain, No Ear discharge, No Nose pain, No Nose discharge, No Nose congestion, No Mouth pain, No Mouth swelling, No Throat pain, No Throat swelling, No Other Cardiovascular: No Chest Pain, No Palpitations, No Orthopnea, No Paroxysmal Noc. Dyspnea, No Edema, No Lt Headedness, No Other Respiratory: No Cough, No Dry, No Shortness of breath, No SOB with excertion, No Wheezing, No Hemoptysis, No Pleuritic Pain, No Sputum, No Other Gastrointestinal: Nausea, Vomiting, Abdominal Pain; No Diarrhea, No Constipation, No Melena, No Hematochezia, No Other Genitourinary: No Dysuria, No Frequency, No Incontinence, No Hematuria, No Retention, No Other Musculoskeletal: No other, No neck pain, No shoulder pain, No arm pain, No back pain, No hand pain, No leg pain, No foot pain Skin: No Rash, No Lesions, No Jaundice, No Bruising, No Other Objective Vitals Vital Signs Date Time Temp Pulse Resp B/P (MAP) Pulse Ox O2 Delivery O2 Flow Rate FiO2 09/17/24 05:00 97.8 79 19 116/76 (89) 98 97.8 09/16/24 20:00 Room Air* 0 21 Intake/Output Intake and Output 09/17/24 07:00 Intake Total 2900 ml Output Total 700 ml Balance 2200 ml Intake Oral 1000 ml IV Total 1900 ml Output Urine Total 700 ml # Voids 2 # Bowel Movements 2 Exam GEN: Healthy appearing, well-developed, NAD. HEENT: NC/AT; MMM. CV: RRR, no m/r/g. LUNGS: CTAB, no w/r/c. ABD: Right upper quadrant tenderness, bowel sounds present normal EXT: skin Warm, well perfused. no rashes. No clubbing, cyanosis, or edema. NEURO: Ambulating with no limitations. No focal deficits. Medications Current Medications Medications Dose Ordered Sig/Nazia Route Start Time Stop Time Status Last Admin Dose Admin Ceftriaxone Sodium 50 ml @ 100 mls/hr Q24H IV 09/12/24 18:00 09/15/24 18:07 100 MLS/HR Pantoprazole Sodium 40 mg DAILY IV 09/12/24 10:00 09/17/24 09:45 40 MG Metronidazole 100 ml @ 100 mls/hr Q8HR IV 09/11/24 22:00 09/17/24 05:13 100 MLS/HR Acetaminophen/ Hydrocodone Bitart 1 tab Q4HP PRN PO 09/11/24 22:00 09/14/24 13:01 1 TAB Ondansetron HCl 4 mg Q4HP PRN IV 09/11/24 22:00 09/14/24 08:58 4 MG Docusate Sodium 100 mg BIDPRN PRN PO 09/11/24 22:00 Acetaminophen 650 mg Q6HP PRN PO 09/11/24 22:00 09/13/24 21:05 650 MG Nitroglycerin 0.4 mg Q5MINP PRN SL 09/12/24 00:00 Morphine Sulfate 2 mg Q30M PRN IV 09/12/24 00:00 Dextrose/Sodium Chloride 1,000 ml @ 100 mls/hr Q10H IV 09/14/24 16:45 09/17/24 05:13 100 MLS/HR Ketorolac Tromethamine 15 mg Q6HPRN PRN IV 09/14/24 16:45 09/19/24 16:44 09/14/24 18:33 15 MG Morphine Sulfate 2 mg Q4HPRN PRN IV 09/15/24 11:45 Laboratory Results Laboratory Tests 09/17/24 05:14 Chemistry Test 09/17/24 05:14 Albumin 3.6 g/dL (3.2-4.8) Calcium Level 8.8 mg/dL (8.7-10.4) Total Protein 6.0 g/dL (5.7-8.2) LFT Test 09/17/24 05:14 Alanine Aminotransferase (ALT) 271 U/L (7-40) H Alkaline Phosphatase 118 U/L (46-116) H Aspartate Amino Transferase (AST) 88 U/L (13-40) H Total Bilirubin 1.0 mg/dL (0.2-1.0) Urinalysis Test 09/11/24 13:30 09/13/24 12:00 Urine Color Yellow (Yellow) Urine Clarity Turbid (Clear) H Urine pH 6.0 (5.0-9.0) Urine Specific [place] 1.033 (1.001-1.035) Urine Protein Trace (Negative) H Urine Ketones 1+ (Negative) H Urine Blood Negative /uL (Negative) Urine Nitrite Negative (Negative) Urine Bilirubin 1+ (Negative) H Urine Urobilinogen 4 mg/dL (Negative) H Urine Leukocyte Esterase Negative /uL (Negative) Urine RBC 2 /hpf (0 - 4) Urine Microscopic WBC 1 /HPF (0-5) Urine Squamous Epithelial Cells Mod /hpf (<5) Urine Bacteria None seen /hpf (None Seen) Urine Mucus Few (None Seen) Urine Glucose Normal mg/dL (Normal) Urine Test Negative (Negative) Microbiology Microbiology Date/Time Source Procedure Growth Status 09/11/24 22:24 Blood Blood Culture - Final NO GROWTH AFTER 5 DAYS OF INCUBATION. Complete Labs and/or images reviewed: Labs reviewed by me, Image(s) reviewed by me Assessment/Plan Assessment/Plan History of Present Illness The patient is a 24-year-old female with past medical history of gallstones who presented to [facility] ED with complaint of abdominal pain for the past 3 weeks. Patient reports she has been experiencing abdominal pain rating 8/10 numeric scale, described as sharp, associated with nausea, vomiting, getting worse that prompted this visit. Patient was seen and evaluated in the ED, laboratory data shows WBC 20.0, platelets 455, sodium 138, potassium 4.0, BUN 11, creatinine 0.81, glucose 106, calcium 9.9, lipase 27, AST 92, ALT 59, blood pressure 112/80, heart rate 96, temperature 98.6 F, O2 saturation 98% on room air. Gallbladder ultrasound revealing cholelithiasis, dilated common bile duct measuring 8 mm with possible choledocholithiasis. Patient was given Toradol 30 mg IV x1, please see medication orders section in the computer. On my assessment, patient denied chest pain, no headache, no dizziness, no diaphoresis, no shortness of breaths, no nausea, no vomiting at this moment, no fever, no chills. Patient was admitted for further evaluation and medical management. 09/12 GI and surgery are on board. Both recommending MRCP. MRCP is negative for any choledocholithiasis or any biliary obstruction. GI or surgery either or have informed for transfer through hospice social worker although no order is visible. Transfer center enquiring. We will trend LFTs and T bili and symptoms. And we will follow up with surgery and GI to re-evaluate need for transfer. It is likely that patient has passed the stone. Patient may also require HIDA scan. Holding transfer right now. 09/13 patient is feeling improved. Right upper quadrant pain present although much milder. LFTs are improving, hyperbilirubinemia resolved. Surgery onboard with plan for cholecystectomy for symptomatic cholelithiasis. Taken to OR today. We will follow up with surgery plan. 09/14 postop day 1. Patient in significant amount of pain, having multiple rounds of emesis. Surgery has inserted NG tube on continuous low in's suctioned. We will give patient D5 half-normal NS as she is NPO. Pain control we will change to moderate morphine 2 mg q.4, severe Toradol 15 q.6 max 3 days,. Patient is feeling Zofran, we will start 1st line Benadryl 25 IV q.6, second- line Compazine 10 q.8. Appreciate surgical follow up. 09/15 postop day 2. Nausea improving. Overnight she has 200 cc coffee- ground/dark brown output. Surgery aware. Type and cross today. Hemoglobin is stable. Abdominal pain is improving but no bowel sounds yet. No drains noted. Abdominal binder present. Patient is begging for some ice chips. She is informed only 1 ice chip at a time and only 2 moisturize oral cavity. RN made aware of this. Appreciate surgical follow up. We will continuing prophylactic antibiotics ceftriaxone and Flagyl. 09/16 postop day 3. Patient is very anxious and wants the NG tube out. End of last shift daytime biliary output from NG tube was 250 cc, this a.m. it is 500 cc. But patient is having bowel sounds, passing gas, nausea significantly improved, tolerating ice chips,. Defer discontinuation of NG tube surgery. We will continue IV antibiotics, discontinue prn Compazine and prn Benadryl. We will keep prn Zofran for nausea. Continue p.r.n. analgesics.. Hypokalemic, given K rider. 40 mEq. Pending hepatic panel. Hemoglobin stable. If surgery decides to keep it NG tube, patient will possibly need PPN, defer to surgery. Today goal possibly remove NG tube through surgery recommendations. Appreciate surgery follow up. 09/17 LFT labs are improving. Patient has significant improvement today. Tolerating clear liquid diet now since last night. No nausea and vomiting further. NG tube is out. Abdominal pain is improved. Bowel sounds are hypoactive. No drains. Waiting for surgical clearance for possible discharge today or tomorrow. We will DC telemetry today. Diagnosis: Acute choledocholithiasis Acute cholecystitis post-op expected nausea, ileus possible CBD obstruction, ruled out Transaminitis Hyperbilirubinemia Leukocytosis Neutrophilia Multiple body metal piercings Plan: -Clear liquid diet which patient is tolerating -IV antibiotics -P.r.n. antiemetics -Prn analgesia -Continue home medications -Surgery consult -GI consult NPO, diet defer to surgery postop. GI prophylaxis-tolerating diet DVT prophylaxis-low patella score no need for Lovenox, minimal ambulation present Tele Full code Plan discussed with: Patient Date of Service: Sep 17, 2024 Billing Provider: MARTHA PHAM MD Common Visit Codes: NOT BILLABLE MARTHA PHAM MD Sep 17, 2024 10:01
--- NOTE | 2024-09-17 17:06 | DVHPN2 ---
Progress Note - Dictate Date Seen: Sep 17, 2024 Medical Necessity Reason Pt with a Central, PICC or Fol: No Subjective Postop day 4. S/P laparoscopic cholecystectomy Mild postop pain; mild postop ileus resolving MRCP shows no CBD stone Liver enzymes and bilirubin are trending downwards Patient feels better, denies nausea vomiting vital signs Vital Sign Date Time Temp Pulse Resp B/P (MAP) Pulse Ox O2 Delivery O2 Flow Rate FiO2 09/17/24 13:00 98.9 90 18 111/80 (90) 99 98.9 09/17/24 08:00 Room Air* 0 21 Total Intake and Output 09/16/24 09/16/24 09/17/24 15:00 23:00 07:00 Intake Total 700 ml 0 ml 2200 ml Output Total 700 ml Balance 700 ml 0 ml 1500 ml medications Current Medications Medications Dose Ordered Sig/Nazia Route Start Time Stop Time Status Last Admin Dose Admin Ceftriaxone Sodium 50 ml @ 100 mls/hr Q24H IV 09/12/24 18:00 09/15/24 18:07 100 MLS/HR Pantoprazole Sodium 40 mg DAILY IV 09/12/24 10:00 09/17/24 09:45 40 MG Metronidazole 100 ml @ 100 mls/hr Q8HR IV 09/11/24 22:00 09/17/24 15:07 100 MLS/HR Acetaminophen/ Hydrocodone Bitart 1 tab Q4HP PRN PO 09/11/24 22:00 09/14/24 13:01 1 TAB Ondansetron HCl 4 mg Q4HP PRN IV 09/11/24 22:00 09/17/24 12:28 4 MG Docusate Sodium 100 mg BIDPRN PRN PO 09/11/24 22:00 Acetaminophen 650 mg Q6HP PRN PO 09/11/24 22:00 09/13/24 21:05 650 MG Nitroglycerin 0.4 mg Q5MINP PRN SL 09/12/24 00:00 Morphine Sulfate 2 mg Q30M PRN IV 09/12/24 00:00 Dextrose/Sodium Chloride 1,000 ml @ 100 mls/hr Q10H IV 09/14/24 16:45 09/17/24 15:07 100 MLS/HR Ketorolac Tromethamine 15 mg Q6HPRN PRN IV 09/14/24 16:45 09/19/24 16:44 09/14/24 18:33 15 MG Morphine Sulfate 2 mg Q4HPRN PRN IV 09/15/24 11:45 objective General: NAD, AAOX3 Chest: lung espinoza clear to auscultation Heart: RRR, no murmur Abdomen: non-distended, no tenderness to palpation, +BS laboratory and microbiology Laboratory Tests 09/17/24 05:14 Test 09/17/24 05:14 Range/Units Serum Glucose 105 74-106 mg/dL Problems(with codes): (1) Calculus of gallbladder and bile duct with acute cholecystitis without obstruction (2) Elevated liver enzymes (3) Leukocytosis, unspecified (4) Common bile duct dilation (5) Cholelithiasis and cholecystitis without obstruction Prognosis Plan Advance diet as tolerated Monitor labs Outpatient follow up with GI Services as needed Protonix 40 mg p.o. daily Outpatient follow up with GI Services to discuss elective endoscopy in the future if she has any GI symptoms Dietary Evaluation Review Recommendations by RD: Dietary education by RD Comments: 1) Advance to low-fat diet when medically feasible 2) Refer to outpatient RD for weight management 3) Follow-up with gastroenterology 4) Continue to monitor I&O, labs, and skin integrity Expected Outcomes/Goals: 1) labs to improve 2) diet to advance 3) f/u in 3-5 days Plan discussed with: Patient, Other (Dr Neil Stanton) TOHMAS STANTON MD Sep 17, 2024 17:06
--- NOTE | 2024-09-17 17:46 | DVHPN2 ---
Progress Note Date Seen: Sep 17, 2024 Medical Necessity Reason Pt with a Central, PICC or Fol: No Objective vital signs Vital Sign Date Time Temp Pulse Resp B/P (MAP) Pulse Ox O2 Delivery O2 Flow Rate FiO2 09/17/24 13:00 98.9 90 18 111/80 (90) 99 98.9 09/17/24 08:00 Room Air* 0 21 Total Intake and Output 09/16/24 09/16/24 09/17/24 15:00 23:00 07:00 Intake Total 700 ml 0 ml 2200 ml Output Total 700 ml Balance 700 ml 0 ml 1500 ml medications Current Medications Medications Dose Ordered Sig/Nazia Route Start Time Stop Time Status Last Admin Dose Admin Ceftriaxone Sodium 50 ml @ 100 mls/hr Q24H IV 09/12/24 18:00 09/15/24 18:07 100 MLS/HR Pantoprazole Sodium 40 mg DAILY IV 09/12/24 10:00 09/17/24 09:45 40 MG Metronidazole 100 ml @ 100 mls/hr Q8HR IV 09/11/24 22:00 09/17/24 15:07 100 MLS/HR Acetaminophen/ Hydrocodone Bitart 1 tab Q4HP PRN PO 09/11/24 22:00 09/14/24 13:01 1 TAB Ondansetron HCl 4 mg Q4HP PRN IV 09/11/24 22:00 09/17/24 12:28 4 MG Docusate Sodium 100 mg BIDPRN PRN PO 09/11/24 22:00 Acetaminophen 650 mg Q6HP PRN PO 09/11/24 22:00 09/13/24 21:05 650 MG Nitroglycerin 0.4 mg Q5MINP PRN SL 09/12/24 00:00 Morphine Sulfate 2 mg Q30M PRN IV 09/12/24 00:00 Dextrose/Sodium Chloride 1,000 ml @ 100 mls/hr Q10H IV 09/14/24 16:45 09/17/24 15:07 100 MLS/HR Ketorolac Tromethamine 15 mg Q6HPRN PRN IV 09/14/24 16:45 09/19/24 16:44 09/14/24 18:33 15 MG Morphine Sulfate 2 mg Q4HPRN PRN IV 09/15/24 11:45 laboratory and microbiology Laboratory Tests 09/17/24 05:14 Test 09/17/24 05:14 Range/Units Serum Glucose 105 74-106 mg/dL Microbiology Date/Time Source Procedure Growth Status 09/11/24 22:24 Blood Blood Culture - Final NO GROWTH AFTER 5 DAYS OF INCUBATION. Complete Problem List/Assessment/Plan Problem List/Assessment/Plan AFEBRILE VSS ABD SOFT LESS TENDER LFT DOWN DEB CLEAR LOQUIDS ADVANCE DIET DEB NURSE AT BEDSIDE CLEARED FOR DISCHARGE INSTRUCTIONS RE DIET ACTIVITY F/UP GIVEN Plan discussed with: Patient My Orders My Orders Orders - GISELA ORTIZ MD Procedure Category Date Status Time Clear Liq Diet DIET 09/17/24 Transmitted Dinner Dietary Evaluation Review Recommendations by RD: Dietary education by RD Comments: 1) Advance to low-fat diet when medically feasible 2) Refer to outpatient RD for weight management 3) Follow-up with gastroenterology 4) Continue to monitor I&O, labs, and skin integrity Expected Outcomes/Goals: 1) labs to improve 2) diet to advance 3) f/u in 3-5 days GISELA ORTIZ MD Sep 17, 2024 17:46
[2024-09-17] MEDS ORDERED: ZOFR4T PO (17:55)
[2024-09-17] MEDS ORDERED: AUG875T PO (17:55)
--- NOTE | 2024-09-17 18:02 | DVHDS2 ---
Discharge Summary Date of Admission Sep 11, 2024 at 23:46 Date of Discharge: Sep 17, 2024 Labs/Diagnostic Data: Laboratory Results Test 09/17/24 05:14 09/16/24 05:43 09/15/24 01:00 09/13/24 12:00 White Blood Count 8.7 10^3/uL (4.4-10.8) Red Blood Count 3.92 10^6/uL (4.0-5.20) Hemoglobin 11.5 g/dL (12.2-16.2) Hematocrit 34.0 % (36.0-46.0) Mean Corpuscular Volume 86.8 fL (80.0-100.0) Mean Corpuscular Hemoglobin 29.4 pg (28.0-32.0) Mean Corpuscular Hemoglobin Concent 33.8 g/dL (32.0-36.0) Red Cell Distribution Width 14.0 % (11.8-14.3) Platelet Count 290 10^3/uL (140-450) Mean Platelet Volume 8.5 fL (6.9-10.8) Neutrophils (%) (Auto) 55.3 % (37.0-80.0) Lymphocytes (%) (Auto) 32.7 % (10.0-50.0) Monocytes (%) (Auto) 10.1 % (0.0-12.0) Eosinophils (%) (Auto) 1.1 % (0.0-7.0) Basophils (%) (Auto) 0.8 % (0.0-2.0) Neutrophils # (Auto) 4.8 10 ^3/uL (1.6-8.6) Lymphocytes # (Auto) 2.8 10 ^3/uL (0.4-5.4) Monocytes # (Auto) 0.9 10 ^3/uL (0-1.3) Eosinophils # (Auto) 0.1 10 ^3/uL (0-0.8) Basophils # (Auto) 0.1 10 ^3/uL (0-0.2) Nucleated Red Blood Cells 0.0 % Sodium Level 139 mmol/L (136-145) Potassium Level 3.3 mmol/L (3.5-5.1) Chloride Level 107 mmol/L (98-107) Carbon Dioxide Level 21 mmol/L (20-31) Anion Gap 11 (5-15) Blood Urea Nitrogen < 5 mg/dL (9-23) Creatinine 0.61 mg/dL (0.550-1.02) Glomerular Filtration Rate Calc 129 mL/min (>90) BUN/Creatinine Ratio 8.2 (10.0-20.0) Serum Glucose 105 mg/dL (74-106) Calcium Level 8.8 mg/dL (8.7-10.4) Total Bilirubin 1.0 mg/dL (0.2-1.0) Aspartate Amino Transferase (AST) 88 U/L (13-40) Alanine Aminotransferase (ALT) 271 U/L (7-40) Alkaline Phosphatase 118 U/L (46-116) Total Protein 6.0 g/dL (5.7-8.2) Albumin 3.6 g/dL (3.2-4.8) Direct Bilirubin 0.8 mg/dL (<0.3) Gastric Fluid pH 2 Gastric Fluid Occult Blood Positive (Negative) Urine Test Negative (Negative) Test 09/13/24 10:14 09/13/24 05:01 09/11/24 13:30 Prothrombin Time 10.9 sec (9.3-11.8) Prothrombin Time INR 1.03 (0.9-1.15) Activated Partial Thromboplast Time 27.8 SEC (24.5-34.5) Lipase 27 U/L (12-53) Urine Color Yellow (Yellow) Urine Clarity Turbid (Clear) Urine pH 6.0 (5.0-9.0) Urine Specific [place] 1.033 (1.001-1.035) Urine Protein Trace (Negative) Urine Ketones 1+ (Negative) Urine Blood Negative /uL (Negative) Urine Nitrite Negative (Negative) Urine Bilirubin 1+ (Negative) Urine Urobilinogen 4 mg/dL (Negative) Urine Leukocyte Esterase Negative /uL (Negative) Urine RBC 2 /hpf (0 - 4) Urine Microscopic WBC 1 /HPF (0-5) Urine Squamous Epithelial Cells Mod /hpf (<5) Urine Bacteria None seen /hpf (None Seen) Urine Mucus Few (None Seen) Urine Glucose Normal mg/dL (Normal) Other Laboratory Tests 09/17/24 05:14 Final Diagnosis/Problems List Acute cholecystitis SP laparoscopic cholecystectomy post-op expected nausea, ileus possible, resolved Acute choledocholithiasis, resolved CBD obstruction, ruled out Transaminitis Hyperbilirubinemia Leukocytosis Neutrophilia Multiple body metal piercings Discharge Disposition: Home Discharge Instruct/Medications Diet: See Comment Diet comment: See below Activity: No Restrictions, As Tolerated Follow Up/Referral: See below Medications: See below Scheduled Amoxicillin & Pot Clavulanate (Augmentin Tablet), 875 MG PO BID Scheduled PRN Hyoscyamine Sulfate (Hyoscyamine Sulfate), 2 TAB PO Q4HPRN PRN for pain, (Reported) Ondansetron Odt 4MG Tab (Zofran Po), 4 MG PO TIDP PRN Discharge Statement: "Patient was advised to return to the ER or call 911 if any headaches, dizziness, shortness of breath, chest pain, abdominal pain, bleeding, fevers, or worsening of medical condition. Patient was counseled about treatment plan, medications, possible side effects, patientverbalized understanding. All questions were answered to the best of my ability. This discharge took greater then 30 minutes in planning, reviewing documentation, counseling the patient, and discussing with other team members." Date of Service: Sep 17, 2024 Billing Provider: MARTHA PHAM MD Common Visit Codes: 39447-YDY/OBS DISCH DAY >30min MARTHA PHAM MD Sep 17, 2024 18:02
== END 2024-09-17 20:20 | disposition home or self-care (01) | DRG 263 ==
LOC: ER 15:18 → OVERFLOW 23:46 → TELE-EAST 09-12 18:38
PROVIDERS: ADMIT Student in an Organized Health Care Education/Training Program; ATTEND Student in an Organized Health Care Education/Training Program
PROC: 0FT44ZZ Resection of Gallbladder, Percutaneous Endoscopic Approach (ICD-10-PCS; principal; 2024-09-13 17:35)
DX: K80.62 Calculus of gallbladder and bile duct with acute cholecystitis without obstruction (principal); K76.0 Fatty (change of) liver, not elsewhere classified; K56.7 Ileus, unspecified; K83.8 Other specified diseases of biliary tract; E87.6 Hypokalemia; R79.89 Other specified abnormal findings of blood chemistry; K91.89 Other postprocedural complications and disorders of digestive system; Z83.3 Family history of diabetes mellitus; D72.829 Elevated white blood cell count, unspecified
CPT/HCPCS: 36415; 71045; 74181; 76705; 80048; 80053; 80076; 81001; 81025; 82271; 83690; 85025; 85610; 85730; 86850; 86900; 86901; 87040; 93005; 96365; 96375; G0378; J0330; J1885; J2003; J2250; J2405; J2470; J2704; J3490